=== PATIENT | male | born 1955 | race Caucasian/White ===

== ENCOUNTER → 2024-02-28 06:22 | Day surgery (SDC) | payer BC, SELFPAY ==
[2024-02-28 07:04] LABS: Glucose - Point of Care 126 mg/dl (70-99)
== END ==
LOC: GI 06:22
PROVIDERS: ATTENDING PHYSICIAN Internal Medicine Gastroenterology
DX: Z12.11 Encounter for screening for malignant neoplasm of colon (principal); K52.9 Noninfective gastroenteritis and colitis, unspecified; K63.89 Other specified diseases of intestine; K57.30 Diverticulosis of large intestine without perforation or abscess without bleeding; K64.8 Other hemorrhoids
CPT/HCPCS: 45380; 88305; 82962

== ENCOUNTER → 2024-10-18 15:57 | Outpatient (REF) | payer BC, SELFPAY | LOC: CLAB 15:57 | PROVIDERS: ATTENDING PHYSICIAN Podiatrist | DX: M86.172 Other acute osteomyelitis, left ankle and foot (principal) | CPT/HCPCS: 88305; 88311 ==

== ENCOUNTER 2025-05-11 15:26 | Inpatient (IN) | payer BC, SELFPAY ==
[2025-05-11 12:48] VITALS: BP 115/66
[2025-05-11 13:27] VITALS: BMI 34.1
--- NOTE | 2025-05-11 13:34 | ED.GENMED ---
History of Present Illness
General
Chief Complaint: Skin Problem
Source: patient
Exam Limitations: none
Time Seen by Provider: 05/11/25 13:10
Nursing documentation reviewed up to this point in time: agreed with
History of Present Illness
History of Present Illness:
69-year-old male with history as noted significant for hypertension, hyperlipidemia, diabetes multiple prior toe amputations presents to the ER for a left foot infection; was sent in by his search marketing coordinator (Dr. Soler) for admission. Patient reports
that he has had chronic wounds for the past few months on his left foot but over the past 5 days he has noticed increased redness, increasing size of wound, purulent drainage and foul odor. Schedule an appoint with his search marketing coordinator today who told him
that he required admission for IV antibiotics and surgery. He has had subjective fever the past few days. He denies any other acute complaints.
Past History
Past History
ED Past Medical History: HTN and Hypercholesterolemia
Social History
Tobacco: Non-smoker
Living: with family
Review of Systems
Review of Systems
All Other Systems: ROS reviewed and negative except as documented in HPI and ROS
Constitutional: Reports fever; Denies chills
Respiratory: Denies trouble breathing
Cardiac: Denies chest pain
ABD/GI: Denies abdominal pain
Musculoskeletal: Denies neck pain or back pain
Skin: Reports other (Wound infection)
Phy Exam
Physical Exam
Physical Exam:
General: Awake, alert, oriented x3; no acute distress
Head: Normocephalic, atraumatic
Eyes: Conjunctiva normal
Throat: Airway intact, handling secretions
Neck: Trachea midline, supple without meningismus
Lungs: Breathing comfortably no distress, no tachypnea or hypoxia
Heart: Regular rate
Neuro: Grossly intact
Skin: On patient's left foot he has necrotic wound in the area of prior 2nd through 4th toe amputation with exposed bone, purulent drainage, foul odor and large surrounding area of erythema and warmth (Pictured below)
Extremities: Foot wound as below; no edema, palpable pulses in the feet bilaterally
Scores
Heart Failure Risk
Heart Failure Risk Score: Not Applicable
Heart Score for Chest Pain Patients
STEMI patient?: Not applicable
Withdrawal Assessment of Alcohol
Withdrawal Assessment Completed?: Not applicable
Course
Orders/Labs/Results
Orders:
Orders
05/11/25 13:10
CR Foot - Left Min 3 Views Urgent
Comment:
Reason For Exam: foot wound infection
05/11/25 13:11
CRP [C-Reactive Protein] Urgent
Complete Blood Count/With Diff Urgent
Comprehensive Metabolic Panel Urgent
ESR [Erythrocyte Sed Rate] Urgent
05/11/25 13:32
Piperacillin/Tazo 3.375 Gram [Zosyn] 3.375 gram in 50 ml IV NOW
05/11/25 13:33
Vancomycin [Vancocin] 2,000 mg 0.9% Sodium Chloride 500 ml [Nss] 500 ml IV NOW
05/11/25 13:45
Blood Culture Q30M
CHADD Source: Blood/Venous
Specimen Description:
05/11/25 14:15
Blood Culture Q30M
CHADD Source: Blood/Venous
Specimen Description:
Vital Signs
Initial and Last Documented VS:
Initial Vital Signs
Temp Pulse Resp BP Pulse Ox
36.6 C 84 18 115/66 96
05/11/25 12:48 05/11/25 12:48 05/11/25 12:48 05/11/25 12:48 05/11/25 12:48
Last Documented Vital Signs
Temp Pulse Resp BP Pulse Ox
36.6 C 84 18 115/66 96
05/11/25 12:48 05/11/25 12:48 05/11/25 12:48 05/11/25 12:48 05/11/25 12:48
MDM/Problems Addressed
Differential Diagnosis Includes:
Wound infection, osteomyelitis, cellulitis
MDM/Problems Addressed:
69-year-old male presents with infected diabetic foot wound on the left foot. Sent by his search marketing coordinator for IV antibiotics and admission with plan for MRI and OR for debridement tomorrow. Vital signs are normal here. Exam as above. Will place an IV
send labs including a CBC and a CMP, ESR and CRP. Will check foot x-ray to start will ultimately likely receive an MRI during admission. Will treat with IV antibiotics. Discussed case with hospitalist for admission.
Chronic conditions affecting care:
Diabetes
*Radiology
Radiology exam reviewed: preliminary read by ED provider
*Pulse Oximetry
SaO2: 96
Oxygen Mode of Delivery: Room air
Patient hypoxic: no (96%)
*Critical Care Note
Total Time (30-74mins, 75-104mins- exclusive of procedures): Not Applicable
Data Reviewed
Review of Other/Old Records Reveals: Records (Reviewed note from podiatry appointment today)
Source: patient, records and spouse
Patient Management
Discussion with other providers: Hospitalist (Discussed with hospitalist) and Historic Sites Supervisor (Discussed with search marketing coordinator)
Escalation/DeEscalation of care consider admission/obs:
Admission indicated
ED Attending Note
-
Portions of this chart may have been created with voice recognition software.� Occasional wrong word or��sound alike� substitutions may have occurred due to the inherent limitations of voice recognition software.
Discharge Plan
Departure
Patient Disposition: Admit
Date of Disposition: 05/11/25
Time of Disposition: 13:39
Admit to doctor: Sia
Presentation/result/management discussed w/ accepting MD/DO: Hospitalist
Discharge Problem:
Wound infection
Prescriptions:
No Action
rosuvastatin 10 MG tablet
10 mg PO DAILY
METFORMIN HCL
1,000 mg PO BID
glimepiride 1 MG tablet
1 mg PO DAILY
liraglutide [Victoza 2-Adelfo] 0.6 MG/0.1 ML pen injector
0.6 mg SQ DAILY
[id number] [Men 50 Plus Multivitamin] 1 EACH tablet
1 ea PO DAILY
empagliflozin [Jardiance] 25 MG tablet
25 mg PO DAILY
Cinnamon
1,000 mg PO DAILY
lisinopril 20 MG tablet
20 mg PO DAILY AT 0700
sennosides [senna] 1 TABLET tablet
2 tab PO BID 0RF
acetaminophen 325 MG tablet
650 mg PO QID 0RF
polyethylene glycol 3350 17 GRAMS powder in packet
17 grams PO DAILY 0RF
magnesium hydroxide 30 ML suspension
30 ml PO DAILYPRN PRN (Reason: constipation) 0RF
aspirin 325 MG tablet,delayed release (DR/EC)
325 mg PO DAILY 0RF
docusate sodium 100 MG capsule
100 mg PO BID 0RF
oxycodone 5 MG tablet
1 - 2 tab PO Q4HPRN PRN (Reason: moderate�severe pain) Qty: 75 0RF
naproxen sodium [Aleve] 220 MG tablet
440 mg PO BID Qty: 0 0RF
Interventions
Interventions:
*General Assessment Last Done: 05/11/25 13:25
*ED- Fall Risk Assessment Last Done: 05/11/25 13:25
*ED COVID-19 Vaccine History Last Done: 05/11/25 13:25
Discharge Date and Time
Print Language: TURKISH
[2025-05-11] MEDS: ZOSYN 50 IV ×2 (13:43→19:25)
[2025-05-11 13:50] LABS: Hematocrit 35.9 % (39.0-52.0); Hemoglobin 12.1 g/dL (13.0-18.0); Mean Corp Hgb Conc. 33.7 g/dL (33.0-37.0); Mean Corpuscular Volume 86.1 fL (80.0-94.0); Nucleated Red Blood Cells % 0 % (-); Platelet Count 460 10^3/uL (130-400); Red Cell Dist. Width 12.6 % (11.5-14.5)
[2025-05-11] MEDS: VANCOCIN 540 MG IV (14:19)
[2025-05-11 14:21] LABS: ALT (SGPT) 35 U/L (0-50); AST (SGOT) 31 U/L (17-59); Albumin 3.8 g/dl (3.5-5.0); Alkaline Phosphatase 150 U/L (38-126); Blood Urea Nitrogen 20 mg/dl (9-20); Calcium 9.5 mg/dl (8.4-10.2); Carbon Dioxide 25 mmol/L (22-30); Chloride 104 mmol/L (98-107); Estimated Creatinine Clearance > 125 ml/min; Glucose 137 mg/dl (70-99); Potassium 3.8 mmol/L (3.5-5.1); Sodium 139 mmol/L (135-145); Total Protein 6.7 g/dl (6.3-8.2); eGFR > 60.00
--- NOTE | 2025-05-11 14:38 | HPS.HSE ---
Addendum entered and electronically signed by Rajendra Stovall MD 05/11/25 18:25:
This is an addendum to H&P written by Bhavna Barr on 05/11/2025. �Patient seen and examined independently with resident.
69-year-old male past medical history of hypertension, hyperlipidemia, diabetes, multiple prior toe amputations, obesity presenting with left foot infection. �He was sent in by his mobile practice lead Dr. Soler. �Has had chronic wounds on past few months
of the left foot with increased redness, worsening size and purulent drainage and foul odor over past few days. �Subjective fever.
Vital signs normal.
Labs pending.
Patient with diabetic foot infection of chronic wounds on left foot concerning for osteomyelitis. �Blood cultures pending. �Vancomycin/Zosyn. �Foot x-ray pending. Check MRI. Podiatry consulted for surgery. �N.p.o. past midnight. Hold oral diabetic
medications. ID consulted.�
Original Note:
Family Physician
-
Family Physician: Fred Armando
Chief Complaint
-
Diabetic foot infection
History of Present Illness
69-year-old male with history of insulin-dependent diabetes mellitus with prior toe amputations bilaterally, hyperlipidemia, hypertension, morbid obesity, osteoarthritis of right knee, who presents with infection of chronic left foot wound. Chronic
wound was present over the past few months but over the past several days he noticed redness, dark-colored discoloration of the wound, and foul odor. There was no discharge or pain. He was seen by his mobile practice lead, Dr. Soler, today who sent him
to the ED to be admitted with arrangements for surgical intervention. He does have diabetic neuropathy with numbness in bilateral feet, but reports no acute changes in his chronic neuropathic symptoms. He states his blood glucose are generally
well-controlled and reports A1c of 6.8.
He reports subjective fever. Denies chest pain, palpitations, shortness of breath, nausea vomiting, abdominal pain, diarrhea/constipation, urinary symptoms.
Medical History
Past Medical History
Past Medical History: Reports HTN, Hypercholesterolemia, IDDM (Type 2) and Other (obesity, osteoarthritis of knee, multiple toe amputations. )
Past Surgical History: Reports Orthopedic (R knee replacement, left knee replacement, jaw surgery, multiple toe amputations )
Social History
Tobacco: Non-smoker
Alcohol: Other (rare )
Drug: None
Living: With Family
Employment: Employed
Family History
Family History: Not pertinent
Allergies / Home Medications
Allergies reflects when Allergies were last updated in [facility].
Home Medications with original date entered in [facility]
Allergy/Medication List:
Allergies
Allergy/AdvReac Type Severity Reaction Status Date / Time
Dirt, dust, pollen Allergy Sneezing, Uncoded 10/29/17 08:37
puffy
eyes,
wheezing
Home Medications
rosuvastatin 10 mg tablet 10 mg PO DAILY 01/21/12
empagliflozin 25 mg tablet (Jardiance) 25 mg PO DAILY 10/29/17
insulin degludec 100 unit/mL (3 mL) subcutaneous pen (Tresiba FlexTouch U-100 insulin) 7 unit SC DAILY 05/11/25
lisinopril 20 mg-hydrochlorothiazide 25 mg tablet 1 tab PO DAILY 05/11/25
metformin 500 mg tablet,extended release 24 hr 2,000 mg PO QPM 05/11/25
repaglinide 1 mg tablet 2 mg PO BID 05/11/25
therapeutic multivitamin 1 tab PO DAILY 05/11/25
tirzepatide 10 mg/0.5 mL subcutaneous pen injector (Mounjaro) 10 mg SC VALERIO 05/11/25
Review of Systems
-
History Source: Patient
Constitutional: Reports Chills
Respiratory: Denies Trouble Breathing
Cardiac: Denies Chest Pain, Palpitations or Syncope
Abdomen/GI: Denies Abdominal Pain, Nausea, Vomiting, Diarrhea or Constipated
: Reports No Symptoms; Denies Dysuria, Difficulty Voiding or Bleeding
Skin: Reports Other (left foot wound with redness, discoloration, foul odor)
Neurological: Denies Dizzy
Physical Exam
Vital Signs
Vital Signs
Temp Pulse Resp BP Pulse Ox
97.9 F 84 18 115/66 96
05/11/25 12:48 05/11/25 12:48 05/11/25 12:48 05/11/25 12:48 05/11/25 13:42
Physical Exam
General: No Apparent Distress, Comfortable and Conversant
HEENT: NormoCephalic, Anicteric and Moist mucous membranes
Respiratory: Clear and Non Labored Respirations; No Wheezes, Rales, Rhonchi or Crackles
Cardiac: S1/S2, Regular Rhythm and Murmur (faint systolic murmur); No Calf Tenderness
GI: Soft, Non Tender, Non Distended, Normal Bowel Sounds and Other (obese abdomen)
Musculoskeletal: No Clubbing and No Cyanosis
Skin: Other (left foot is warm, posterior tibial pulse nonpalpable, mild ankle swelling, foot wound dressing intact)
Neuro: Awake, Alert and Oriented
Psych: Calm
Laboratory Results
-
05/11/25 13:35
05/11/25 13:35
Laboratory Results
Total Bilirubin 1.1 mg/dl (0.2-1.3) 05/11/25 13:35
AST 31 U/L (17-59) 05/11/25 13:35
ALT 35 U/L (0-50) 05/11/25 13:35
Alkaline Phosphatase 150 U/L (38-126) H 05/11/25 13:35
Impression/Plan
-
IMPRESSION:
69-year-old male with history of insulin-dependent diabetes mellitus with prior toe amputations bilaterally, hyperlipidemia, hypertension, morbid obesity, osteoarthritis of right knee, who presents with diabetic foot infection with osteomyelitis.
PLAN:
Diabetic foot infection:
Osteomyelitis:
Elevated WBC with left shift, elevated CRP/ESR, chills. Exposed bone.
DONALD/TBI in 08/2022 wnl
- Continue Van and zosyn
- Await foot xray.
- Await blood cultures.
- No wound cultures for now, best to get intraoperative culture
- Check MRI
- Infectious disease consult
- Podiatry consult
- NPO from midnight for potential surgical debridement tomorrow
- PT/OT when stable
Type 2 diabetes mellitus:
Insulin dependent:
Pt reports good control. Has CGM, reports A1c 6.8
- Hold metformin, repaglinide, insulin degludec, tirzepetide
- Continue Jardiance
- ISS, diabetic diet, follow accuchecks and adjust regimen as needed
- NPO from midnight
Essential hypertension:
- Continue Lisinopril-HCTZ
Hypercholesterolemia:
- Continue Rosuvastatin
Obesity:
- Affects all aspect of care. Pt will benefit from weight loss measures
DVT ppx: Lovenox
Code status: full code
[2025-05-11 14:39] LABS: C-Reactive Protein 188.70 mg/L (0.0-10.00)
--- NOTE | 2025-05-11 15:25 | CON.ID ---
Consultation
-
Date/Time Consultation Requested: May 11, 2025 151
Date/Time Consultation Performed: May 11, 2025 152
Requesting Provider: Dr. Bhavna Argueta
Performing Provider: Dr. Lily Craig
Reason for Consultation: Diabetic foot infection
Chief Complaint / Past History
Chief Complaint
Nonhealing foot wound
History of Present Illness
69 year old male with history of diabetes, hx multiple toe amps presented to ED today due to left foot swelling and redness. He reports chronic callous with wound on center located plantar aspect of his left foot. He had subjective fever few days
ago and noted deterioration of foot wound. [place] Afterwards, he noted left foot/leg edema, erythema; the wound had opened with malodor discharge. He saw his vehicle monitor technician today who sent him the the ED. WBC
12.6. Foot XRAY: suspicious for osteo along second and third met heads.
Past History
Additional Past Medical History:
Diabetes mellitus
Neuropathy
Hypertension
Dyslipidemia
Right total knee replacement
Left total knee replacement
Left 2nd, 3rd, 4th Toe amputations
Right 2nd toe amputation
Allergy History:
Dirt, dust, pollen Allergy (Uncoded 10/29/17 08:37)
Sneezing, puffy eyes, wheezing
Medications Reviewed: Yes
Current Antibiotics:
Vancomycin
Zosyn
Social History
Tobacco: Non-Smoker
Alcohol: Occasional
Drug: None
Personal:
Family History
Family History: Not Pertinent
Review of Systems
Review of Systems
General: Fever and Chills; Negative Change in Appetite
HEENT: Negative Sinus Problems or Headache
Cardiovascular: Negative Chest Pain
Respiratory: Negative Dyspnea or Cough
Gasteroenterology: Negative Nausea, Vomiting or Diarrhea
Genital / Urological: Negative Dysuria
Endocrine: Negative Weakness
All systems: All other systems were reviewed and were negative
Vital Signs
Temp Pulse Resp BP Pulse Ox
97.9 F 84 18 115/66 96
05/11/25 12:48 05/11/25 12:48 05/11/25 12:48 05/11/25 12:48 05/11/25 13:42
Physical Exam
Physical Exam
Constitutional: No Acute Distress and Comfortable
Eyes: No Conjunctival Hemorrhage and Sclera Anicteric
Pulmonary: Clear
Gastrointestinal: Soft, Non Tender and Non Distended
Extremities: Edema (Left foot and LLE 2+) and Erythema (whole left foot to below knee, + warmth)
Wound: Other (Left foot: large deep wound to bone over plantar 2nd and 3rd sub met, unhealthy tissue, +surrounding erytehma )
Neurological: AO x 3
Lab / Diagnostic Study Results
05/11/25 13:35
05/11/25 13:35
Abs Immat Gran (auto) 0.0 10^3/uL (0-0.05) 05/11/25 13:35
Absolute Neuts (auto) 9.2 10^3/uL (1.4-6.5) H 05/11/25 13:35
Absolute Lymphs (auto) 1.6 10^3/uL (1.2-3.4) 05/11/25 13:35
Absolute Monos (auto) 1.2 10^3/uL (0.1-0.6) H 05/11/25 13:35
Absolute Basos (auto) 0.1 10^3/uL (0-0.2) 05/11/25 13:35
Immature Gran % 0.3 % (0-0.5) 05/11/25 13:35
Neutrophils % 73.0 % (42.2-75.2) 05/11/25 13:35
Lymphocytes % 12.5 % (20.5-51.1) L 05/11/25 13:35
Monocytes % 9.2 % (1.7-9.3) 05/11/25 13:35
Eosinophils % 4.4 % (0-6) 05/11/25 13:35
Basophils % 0.6 % (0-2) 05/11/25 13:35
ESR 61 mm/hour (0-20) H 05/11/25 13:35
C-Reactive Protein 188.70 mg/L (0.0-10.00) H 05/11/25 13:35
Microbiology Results
Micro:
05/11/25 13:38 Blood Culture - Pending
Blood/Venous
05/11/25 13:35 Blood Culture - Pending
Blood/Venous
05/11/25 Foot XRAY: Abnormal osteolytic process along second and third metatarsal heads which is suspicious for acute osteomyelitis. Probable old healed erosion of the fourth metatarsal head.
Assessment / Plan
# Left foot acute osteomyelitis
# LLE cellulitis
# Leukocytosis
# DM with neuropathy
- Suspect need for TMA
- Agree with Vancomycin and Zosyn for now.
- Trend wbc.
# Conditions [employer]
Diabetes mellitus
Neuropathy
Hypertension
Dyslipidemia
Right total knee replacement
Left total knee replacement
Left 2nd, 3rd, 4th Toe amputations
Right 2nd toe amputation
[2025-05-11 15:48] VITALS: BP 118/77
[2025-05-11 16:00] VITALS: BP 109/70
--- NOTE | 2025-05-11 17:00 | PTCARENOTE ---
patient admitted to [facility] from ED. pt was able to walk to bed from stretcher. pt pleasant, AOX3. no complaints offered at this time. pt has wound to L foot that was dressed in ED earlier today. pt asked me not to undress wound due to it being
cleansed and redressed multiple times today. journalists and other writers did not undress wound as per pt request.
[2025-05-11 17:02] VITALS: BP 130/71; BMI 34.9
--- NOTE | 2025-05-11 17:27 | PHA.VAN.IN ---
Assessment
- Assessment
Renal Function: Appears similar to baseline
Concomitant Antimicrobials: Piperacillin/tazo
AUC Dosing Plan
- Dosing Variables
Dosing Weight (kg): 123
Dosing CrCl (ml/min): 125
Vd coefficient (L/kg): 0.7
- Empiric Dosing
Initial / Loading Dose: 2000 MG IV ~ 1415
Maintenance Regimen: 1750 MG IV Q12H
Estimated AUC (mcg*h/mL): 417
Estimated Peak (mcg*h/mL): 28
Estimated Trough (mcg/ml): 9.5
Estimated Half Life (H): 6.4
- Monitoring
No levels ordered at this time: Consider levels in next few days
Pharmacokinetics Vancomycin I
- -
Patient Age: 69
Patient Sex: Male
Vancomycin Day #: 1
Indication: Diabetic Foot
Requesting Provider: Dr Cortney Wade
Height / Weight:
Height 6 ft 2 in
Actual Weight 123.332 kg
Pertinent Past Medical History: diabetes multiple prior toe amputations presents to the ER for a left foot
- Vital Signs / Lab Results
Temp Pulse Resp BP Pulse Ox
98.6 F 83 16 130/71 95
05/11/25 17:02 05/11/25 17:02 05/11/25 17:02 05/11/25 17:02 05/11/25 17:02
Lab Results - Hematology
05/11/25
13:35
WBC 12.6 H
Lab Results - Chemistry
05/11/25
13:35
BUN 20
Creatinine 0.7
Estimated Creat Clear > 125
Albumin 3.8
[2025-05-11] MEDS: LOVENOX 40 MG SC (17:29)
[2025-05-11 17:57] LABS: Glucose - Point of Care 122 mg/dl (70-99)
[2025-05-11] MEDS: NOVOLOG FLEXPEN-MODERATE RESISTANCE SC (18:01)
[2025-05-11 21:42] LABS: Glucose - Point of Care 204 mg/dl (70-99)
[2025-05-11 23:23] VITALS: BP 143/62
[2025-05-12] VITALS (7 sets, daily range): BP systolic 110–124; BP diastolic 56–76
[2025-05-12] MEDS: ZOSYN 50 IV ×4 (01:51→19:18)
[2025-05-12] MEDS: VANCOCIN 535 MG IV ×2 (05:35→17:25)
[2025-05-12 05:50] LABS: Glucose - Point of Care 106 mg/dl (70-99)
--- NOTE | 2025-05-12 07:16 | CON.MD ---
Consultation - Medical
-
CC/HPI: 69-year-old male past medical history of hypertension, hyperlipidemia, diabetes, multiple prior toe amputations, obesity presenting with left foot infection. �He was sent in by me, Dr. Soler yesterday when he presented to the office with
a left foot infection. �Has had chronic wounds on past few months of the left foot and refused surgical intervention. He went away to [place] for several weeks and states that he walked several miles in shoes. He has not been wearing his
offloading shoe as recommended. He relates increased redness, worsening size, purulent drainage, foul odor and fevers over past few days. �Subjective fever.
Past History
Additional Past Medical History:
Diabetes mellitus
Neuropathy
Hypertension
Dyslipidemia
Right total knee replacement
Left total knee replacement
Left 2nd, 3rd, 4th Toe amputations
Right 2nd toe amputation
Allergy History:
Dirt, dust, pollen Allergy (Uncoded 10/29/17 08:37)
Sneezing, puffy eyes, wheezing
Home Medications
rosuvastatin 10 mg tablet 10 mg PO DAILY 01/21/12
empagliflozin 25 mg tablet (Jardiance) 25 mg PO DAILY 10/29/17
insulin degludec 100 unit/mL (3 mL) subcutaneous pen (Tresiba FlexTouch U-100 insulin) 7 unit SC DAILY 05/11/25
lisinopril 20 mg-hydrochlorothiazide 25 mg tablet 1 tab PO DAILY 05/11/25
metformin 500 mg tablet,extended release 24 hr 2,000 mg PO QPM 05/11/25
repaglinide 1 mg tablet 2 mg PO BID 05/11/25
therapeutic multivitamin 1 tab PO DAILY 05/11/25
tirzepatide 10 mg/0.5 mL subcutaneous pen injector (Mounjaro) 10 mg SC VALERIO 05/11/25
Current Antibiotics:
Vancomycin
Zosyn
Social History
Tobacco: Non-Smoker
Alcohol: Occasional
Drug: None
Personal:
Family History
Not Pertinent
Review of Systems
General: Fever and Chills; Negative Change in Appetite
HEENT: Negative Sinus Problems or Headache
Cardiovascular: Negative Chest Pain
Respiratory: Negative Dyspnea or Cough
Gasteroenterology: Negative Nausea, Vomiting or Diarrhea
Genital / Urological: Negative Dysuria
Endocrine: Negative Weakness
All systems: All other systems were reviewed and were negative
PE: Left foot with palpable pulses, normal proximal to distal cooling, loss of pedal hair, several previous digital amputation, large bebeto tar forefoot wound that is black and necrotic with exposed bone. There is malodor and erythema. He also has
a wound on the dorsolateral 5th digit that is fibrillogranular.
05/11/25 Foot X-RAY: Abnormal osteolytic process along second and third metatarsal heads which is suspicious for acute osteomyelitis. Probable old healed erosion of the fourth metatarsal head.
Assessment:
Left foot Diabetic foot infection with acute osteomyelitis
LLE cellulitis
Leukocytosis
DM with neuropathy
Plan: X-rays and labs reviewed. Continue antibiotics per ID - Vanco/Zosyn. Plan for debridement in the OR today. Surgical consent reviewed and discussed. All questions and concerns addressed. We will obtain an MRI after surgery today to assess
the metatarsal bones for osteomyelitis. I discussed with Ted that he may require a TMA if there is additional forefoot osteomyelitis which seems likely based on the x-rays and wound appearance today.
Consultation
-
Date/Time Consultation Requested: 05/12/25
Date/Time Consultation Performed: 05/12/25
Performing Provider: Sallie Soler DPM
Reason for Consultation: Left foot infection
--- NOTE | 2025-05-12 07:52 | W.PN.HOSP.TC ---
Today's Communication/Plan
-
Please see below
Assessment / Plan
Assessment / Plan
Physical Exam
General: No Apparent Distress, Comfortable and Conversant
HEENT: NormoCephalic, Anicteric and Moist mucous membranes
Respiratory: Clear and Non Labored Respirations; No Wheezes, Rales, Rhonchi or Crackles
Cardiac: S1/S2, Regular Rhythm and Murmur (faint systolic murmur); No Calf Tenderness
GI: Soft, Non Tender, Non Distended, Normal Bowel Sounds and Other (obese abdomen)
Musculoskeletal: No Clubbing and No Cyanosis
Skin: Other (left foot is warm, posterior tibial pulse nonpalpable, mild ankle swelling, foot wound dressing intact)
Neuro: Awake, Alert and Oriented
Psych: Calm
Assessment/Plan
69-year-old male with history of insulin-dependent diabetes mellitus with prior toe amputations bilaterally, hyperlipidemia, hypertension, morbid obesity, osteoarthritis of right knee, who presents with infection of chronic left foot wound. Chronic
wound was present over the past few months but over the past several days (prior to admission) he noticed redness, dark-colored discoloration of the wound, and foul odor. There was no discharge or pain. He was seen by his junior brand manager, Dr. Soler,
on 05/11/25, who sent him to the ED to be admitted with arrangements for surgical intervention. He does have diabetic neuropathy with numbness in bilateral feet, but reported no acute changes in his chronic neuropathic symptoms. He states his
blood glucose are generally well-controlled and reports A1c of 6.8. He reported subjective fever. Denied chest pain, palpitations, shortness of breath, nausea vomiting, abdominal pain, diarrhea/constipation, urinary symptoms.
Diabetic foot infection
Osteomyelitis
Elevated WBC with left shift, elevated CRP/ESR, chills. Exposed bone.
DONALD/TBI in 08/2022 wnl
- Continue Van and zosyn
- Foot xray with OM
- Await blood cultures.
- S/P I&D of left foot with bone biopsy on 05/12/25 -- likely will need TMA
- Follow-up on MRI for TMA planning purposes.
- DONALD/PVR ordered to assess healing potential.
- Infectious disease consult
- Podiatry consult
- Activity: heel weightbearing in an OrthoWedge shoe.
- PT/OT when stable
- Continue Diabetic Diet
Type 2 diabetes mellitus
Insulin dependent:
Pt reports good control. Has CGM, reports A1c 6.8
- Hold metformin, repaglinide, insulin degludec, tirzepetide
- Continue Jardiance
- ISS, diabetic diet, follow accuchecks and adjust regimen as needed
Essential Hypertension
- Continue Lisinopril-HCTZ
Hypercholesterolemia
- Continue Rosuvastatin
Obesity
- Affects all aspect of care. Pt will benefit from weight loss measures
DVT Prophylaxis: Lovenox
Code Status: Full Code
Anticipated Discharge: > 48 hours
Subjective/Interval History
-
Date of Service: May 12, 2025
Patient was seen and examined. He denied any significant complaints or symptoms.
Objective Data
-
Labs:
Laboratory Results
05/12/25
06:00
WBC Pending
Hgb Pending
Hct Pending
Plt Count Pending
Sodium Pending
Potassium Pending
Chloride Pending
Carbon Dioxide Pending
BUN Pending
Creatinine Pending
Glucose Pending
Calcium Pending
Vital Signs:
Vital Signs
Temp Pulse Resp BP Pulse Ox
98.1 F 84 18 143/62 95
05/11/25 23:23 05/11/25 23:23 05/11/25 23:23 05/11/25 23:23 05/11/25 23:23
I&O
05/11/25 05/12/2525
06:59 06:59 06:59
Intake Total 1080 / 1080
Balance 1080 / 1080
[2025-05-12] MEDS: NOVOLOG FLEXPEN-MODERATE RESISTANCE SC ×2 (08:33→11:47)
[2025-05-12 10:50] LABS: Hematocrit 35.6 % (39.0-52.0); Hemoglobin 11.9 g/dL (13.0-18.0); Mean Corp Hgb Conc. 33.4 g/dL (33.0-37.0); Mean Corpuscular Volume 86.4 fL (80.0-94.0); Platelet Count 428 10^3/uL (130-400); Red Cell Dist. Width 12.5 % (11.5-14.5)
[2025-05-12 11:08] LABS: Blood Urea Nitrogen 13 mg/dl (9-20); Calcium 8.9 mg/dl (8.4-10.2); Carbon Dioxide 26 mmol/L (22-30); Chloride 107 mmol/L (98-107); Estimated Creatinine Clearance 123 ml/min; Glucose 123 mg/dl (70-99); Potassium 3.5 mmol/L (3.5-5.1); Sodium 141 mmol/L (135-145); eGFR > 60.00
[2025-05-12 11:52] LABS: Glucose - Point of Care 109 mg/dl (70-99)
--- NOTE | 2025-05-12 11:59 | W.PN.UPDATE ---
Update Note
Progress Note Update
S/P I&D of left foot with bone biopsy - See Op report
Bone culture and pathology pending. I suspect Osteomyelitis of the 3rd metatarsal, bone biopsy of 3rd metatarsal pending. He will likely require transmetatarsal amputation. MRI ordered for TMA planning purposes. DONALD/PVR ordered to assess healing
potential.
Plan to flush pack wound tomorrow. He may heel weightbearing in an OrthoWedge shoe. Continue Vanco/Zosyn per ID
--- NOTE | 2025-05-12 12:01 | PHA.VAN.FU ---
Vancomycin Assessment / Plan
- Assessment
Renal Function: Stable
WBC's are: WNL
In the past 24 hrs, patient has been: Afebrile
Concomitant Antimicrobials: piperacillin/tazobactam
- Dosing Plan
Continue: 1750mg q12h
- Monitoring Plan
Trough Level: 05/13 0530
Monitoring Comments: will get trough to assess patient load/dosing requirements
- Follow Up
Pharmacy will continue to follow.
Vancomycin Follow UP
- -
Patient Age: 69
Patient Sex: Male
Vancomycin Day #: 2
Indication: Diabetic Foot
Requesting Provider: Dr. Cortney Wade/Dr. Craig
Height / Weight:
Height 6 ft 2 in
Actual Weight 123.332 kg
Pertinent Past Medical History: T2DM, s/p several toe amputations
- Vital Signs / Lab Results
Temp Pulse Resp BP Pulse Ox
97.3 F 76 20 110/69 97
05/12/25 11:46 05/12/25 11:46 05/12/25 07:35 05/12/25 11:46 05/12/25 11:46
Lab Results - Hematology
05/11/25 05/12/25
13:35 10:32
WBC 12.6 H 10.4
Lab Results - Chemistry
05/11/25 05/12/25
13:35 10:32
BUN 20 13
Creatinine 0.7 0.8
Estimated Creat Clear > 125 123
Albumin 3.8
--- NOTE | 2025-05-12 12:40 | PTCARENOTE ---
Received patient from PACU at 1240. Patient AAOx3, no c/o pain, Left foot dressing CDI, elevated on 2 pillows. Patient was instructed on partial wt bearing status of left foot, off loading shoe (Cait), and walker. Call abreu in reach.
[2025-05-12] MEDS: ZESTRIL 20 MG PO (13:03)
[2025-05-12] MEDS: FARXIGA 10 MG PO (13:04)
[2025-05-12] MEDS: ORETIC 25 MG PO (13:04)
[2025-05-12] MEDS: CRESTOR 10 MG PO (13:04)
[2025-05-12 16:35] LABS: Glucose - Point of Care 216 mg/dl (70-99)
[2025-05-12] MEDS: NOVOLOG FLEXPEN-MODERATE RESISTANCE 3 UNITS SC (17:26)
[2025-05-12] MEDS: LOVENOX 40 MG SC (17:26)
[2025-05-12 21:23] LABS: Glucose - Point of Care 156 mg/dl (70-99)
[2025-05-13] MEDS: ZOSYN 50 IV ×4 (01:07→19:01)
[2025-05-13 06:00] LABS: Hematocrit 34.3 % (39.0-52.0); Hemoglobin 11.4 g/dL (13.0-18.0); Mean Corp Hgb Conc. 33.2 g/dL (33.0-37.0); Mean Corpuscular Volume 87.5 fL (80.0-94.0); Platelet Count 463 10^3/uL (130-400); Red Cell Dist. Width 12.6 % (11.5-14.5)
[2025-05-13] MEDS: VANCOCIN 535 MG IV (06:09)
[2025-05-13 06:31] LABS: Blood Urea Nitrogen 12 mg/dl (9-20); Calcium 9.2 mg/dl (8.4-10.2); Carbon Dioxide 25 mmol/L (22-30); Chloride 106 mmol/L (98-107); Estimated Creatinine Clearance 123 ml/min; Glucose 147 mg/dl (70-99); Potassium 3.5 mmol/L (3.5-5.1); Sodium 140 mmol/L (135-145); eGFR > 60.00
[2025-05-13 07:22] VITALS: BP 124/72
[2025-05-13 07:23] LABS: Glucose - Point of Care 129 mg/dl (70-99)
--- NOTE | 2025-05-13 08:28 | W.PN.POD ---
Today's Communication
Today's Communication
S/P Left foot I&D and 3rd proximal phalanx amputation
Assessment / Plan
-
Assessment:
Left foot Diabetic foot infection with acute osteomyelitis S/P I&D with 3rd proximal phalanx amputation - POD#1
LLE cellulitis
Leukocytosis
DM with neuropathy
Plan: Wound is flushed and packed at bedside today. Continue antibiotics per ID - Vanco/Zosyn. MRI pending. DONALD/PVR pending. Planning for likely TMA/gastroc recession.
Subjective
Chief Complaint
S/P Left foot I&D
Subjective
Patient awake, no complaints of pain
Objective
Temp Pulse Resp BP Pulse Ox
98.8 F 81 18 120/64 94
05/12/25 23:39 05/12/25 23:39 05/12/25 23:39 05/12/25 23:39 05/12/25 23:39
05/13/25 05:18
05/13/25 05:18
Vital Signs and Lab results were reviewed.
Physical Exam
Physical Exam
Left foot bandage with some strikethrough on the inner bandages. Pules palpable, wound on the left plantar foot under the sub2/3 area. Metatarsal head exposed and discolored. Wound bed fibrogranular. No longer any necrosis or malodor.
[2025-05-13] MEDS: NOVOLOG FLEXPEN-MODERATE RESISTANCE SC (08:45)
--- NOTE | 2025-05-13 08:47 | W.PN.HOSP.TC ---
Today's Communication/Plan
-
See plan
Assessment / Plan
Assessment / Plan
Physical Exam
General: No Apparent Distress, Comfortable and Conversant
HEENT: NormoCephalic, Anicteric and Moist mucous membranes
Respiratory: Clear and Non Labored Respirations; No Wheezes, Rales, Rhonchi or Crackles
Cardiac: S1/S2, Regular Rhythm and Murmur (faint systolic murmur); No Calf Tenderness
GI: Soft, Non Tender, Non Distended, Normal Bowel Sounds and Other (obese abdomen)
Musculoskeletal: No Clubbing and No Cyanosis
Skin: Other (left foot is warm, posterior tibial pulse nonpalpable, mild ankle swelling, foot wound dressing intact)
Neuro: Awake, Alert and Oriented
Psych: Calm
Assessment/Plan
69-year-old male with history of insulin-dependent diabetes mellitus with prior toe amputations bilaterally, hyperlipidemia, hypertension, morbid obesity, osteoarthritis of right knee, who presents with infection of chronic left foot wound. Chronic
wound was present over the past few months but over the past several days (prior to admission) he noticed redness, dark-colored discoloration of the wound, and foul odor. There was no discharge or pain. He was seen by his duct maker, Dr. Soler,
on 05/11/25, who sent him to the ED to be admitted with arrangements for surgical intervention. He does have diabetic neuropathy with numbness in bilateral feet, but reported no acute changes in his chronic neuropathic symptoms. He states his
blood glucose are generally well-controlled and reports A1c of 6.8. He reported subjective fever. Denied chest pain, palpitations, shortness of breath, nausea vomiting, abdominal pain, diarrhea/constipation, urinary symptoms.
Diabetic foot infection
Osteomyelitis
Elevated WBC with left shift, elevated CRP/ESR, chills. Exposed bone.
DONALD/TBI in 08/2022 wnl
- Continue Van and zosyn
- Foot xray with OM
- Await blood cultures.
- S/P I&D of left foot with bone biopsy on 05/12/25 -- likely will need TMA
- Follow-up on MRI for TMA planning purposes.
- DONALD/PVR ordered to assess healing potential.
- Infectious disease consult
- Podiatry consult
- Activity: heel weightbearing in an OrthoWedge shoe.
- PT/OT when stable
Type 2 diabetes mellitus
Insulin dependent:
Pt reports good control. Has CGM, reports A1c 6.8
- Hold metformin, repaglinide, insulin degludec, tirzepetide
- Continue Jardiance
- Per patient's request, on 05/13/25, I changed his diet to regular diet
- ISS, follow accuchecks and adjust regimen as needed
- Diabetes INTERMODAL DISPATCHER consult after discussion with patient on 05/13/25
Right Arm Firm and Swollen
- Could be infiltrate from IV line or a venous thrombus
- Check RUE ultrasound
Essential Hypertension
- Continue Lisinopril-HCTZ
Hypercholesterolemia
- Continue Rosuvastatin
Obesity
- Affects all aspect of care. Pt will benefit from weight loss measures
DVT Prophylaxis: Lovenox
Code Status: Full Code
Anticipated Discharge: > 48 hours
Subjective/Interval History
-
Date of Service: May 13, 2025
Patient was seen and examined. He reported his right arm was swollen from the IV access. No numbness, tingling or weakness in the right upper extremity.
Objective Data
-
Labs:
Laboratory Results
05/13/25
05:18
WBC 10.0
Hgb 11.4 L
Hct 34.3 L
Plt Count 463 H
Sodium 140
Potassium 3.5
Chloride 106
Carbon Dioxide 25
BUN 12
Creatinine 0.8
Glucose 147 H
Calcium 9.2
Vital Signs:
Vital Signs
Temp Pulse Resp BP Pulse Ox
98.5 F 73 16 124/72 97
05/13/25 07:22 05/13/25 07:22 05/13/25 07:22 05/13/25 07:22 05/13/25 07:22
I&O
05/12/25 05/13/25 05/14/25
06:59 06:59 06:59
Intake Total 1080 / 1080 1590 / 1590
Output Total 1400 / 1400
Balance 1080 / 1080 190 / 190
[2025-05-13] MEDS: ZESTRIL 20 MG PO (10:15)
[2025-05-13] MEDS: CRESTOR 10 MG PO (10:15)
[2025-05-13] MEDS: FARXIGA 10 MG PO (10:15)
[2025-05-13] MEDS: ORETIC 25 MG PO (10:19)
[2025-05-13 10:32] LABS: Glycohemoglobin (HgbA1c) 6.5 % (4.0-5.6)
--- NOTE | 2025-05-13 11:05 | PHA.VAN.FU ---
Addendum entered and electronically signed by Amira Matthews 05/13/25 11:25:
This note corresponds with day #3 of vancomycin therapy.
Original Note:
Vancomycin Assessment / Plan
- Assessment
Renal Function: Stable
WBC's are: WNL
In the past 24 hrs, patient has been: Afebrile
Concomitant Antimicrobials: piperacillin/tazobactam
- Assessment - Trough Based Monitoring
Trough Value: 13.1
Level Today was: Appropriate
Level Comments: specimen not protected from light, may not truly reflect vanco clearance
- Dosing Plan
Adjust Regimen to: 1500mg q12h
Dosing Comments: Pt trough estimated at 9.7 with [id number], does not follow population PK
- Monitoring Plan
No level(s) ordered at this time: consider within next few days
- Follow Up
Pharmacy will continue to follow.
Vancomycin Follow UP
- -
Patient Age: 69
Patient Sex: Male
Vancomycin Day #: 2
Indication: Diabetic Foot
Requesting Provider: Dr. Barr (Resident)/Dr. Craig
Height / Weight:
Height 6 ft 2 in
Actual Weight 123.332 kg
Pertinent Past Medical History: T2DM, s/p several toe amputations
- Vital Signs / Lab Results
Temp Pulse Resp BP Pulse Ox
98.5 F 73 16 124/72 97
05/13/25 07:22 05/13/25 07:22 05/13/25 07:22 05/13/25 07:22 05/13/25 07:22
Lab Results - Hematology
05/11/25 05/12/25 05/13/25
13:35 10:32 05:18
WBC 12.6 H 10.4 10.0
Lab Results - Chemistry
05/11/25 05/12/25 05/13/25
13:35 10:32 05:18
BUN 20 13 12
Creatinine 0.7 0.8 0.8
Estimated Creat Clear > 125 123 123
Albumin 3.8
Microbiology Results
05/12/25 11:50 Anaerobic Culture - Preliminary
Foot - Left Culture pending. Anaerobic cultures are examined after 3
days incubation. Additional information to follow.
05/12/25 11:50 Wound Culture - Preliminary
Foot - Left Escherichia coli
Gram Stain - Preliminary
05/12/25 11:50 Tissue Culture - Preliminary
Foot - Left Escherichia coli
Enterococcus species
Gram Stain - Preliminary
05/11/25 17:33 MRSA Screen - Final
Nose No Methicillin Resistant Staphylococcus aureus isolated.
05/11/25 13:35 Blood Culture - Preliminary
Blood/Venous No Growth in 24 hours- Final report to follow
05/11/25 13:38 Blood Culture - Preliminary
Blood/Venous No Growth in 24 hours- Final report to follow
Therapeutic Drug Monitoring
Vancomycin Trough 13.1 ug/ml (5-20) 05/13/25 05:12
[2025-05-13 11:16] LABS: Glucose - Point of Care 172 mg/dl (70-99)
--- NOTE | 2025-05-13 12:14 | W.PN.ID1 ---
Date of Service
Date of Service: May 13, 2025
Today's Communication
DC Vanco. Continue Zosyn
Assessment / Plan
# Left foot acute osteomyelitis
# LLE cellulitis
# Leukocytosis - resolved
# DM with neuropathy
-/ s/p I+D, 3rd prox phalanx base amputation
- OR cx: E. coli, Enterococcus
-For MRI
- Continue Zosyn
- DC Vancomycin.
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
Diabetes mellitus
Neuropathy
Hypertension
Dyslipidemia
Right total knee replacement
Left total knee replacement
Left 2nd, 3rd, 4th Toe amputations
Right 2nd toe amputation
Subjective / Review of Systems
No pain
Vital Signs / Physical Exam
Vital Signs
Vital Signs
Temp Pulse Resp BP Pulse Ox
98.5 F 73 16 124/72 97
05/13/25 07:22 05/13/25 07:22 05/13/25 07:22 05/13/25 07:22 05/13/25 07:22
Physical Exam
Constitutional: No Acute Distress and Comfortable
Cardiovascular: Regular Rate and S1/S2
Pulmonary: Clear
Gastrointestinal: Soft, Non Tender and Non Distended
Extremities: Edema (LLE edema decreasing) and Erythema (LLE erythema resolved)
Wound: Other (left foot dressing dry)
Neurological: AO x 3
Objective Data
Lab Data
Lab Results
05/13/25 05:18
05/13/25 05:18
ESR 61 mm/hour (0-20) H 05/11/25 13:35
Estimated Creat Clear 123 ml/min 05/13/25 05:18
Total Bilirubin 1.1 mg/dl (0.2-1.3) 05/11/25 13:35
AST 31 U/L (17-59) 05/11/25 13:35
ALT 35 U/L (0-50) 05/11/25 13:35
Alkaline Phosphatase 150 U/L (38-126) H 05/11/25 13:35
C-Reactive Protein 188.70 mg/L (0.0-10.00) H 05/11/25 13:35
Most recent labs reviewed.
Micro Results:
05/12/25 11:50 Anaerobic Culture - Preliminary
Foot - Left Culture pending. Anaerobic cultures are examined after 3
days incubation. Additional information to follow.
05/12/25 11:50 Wound Culture - Preliminary
Foot - Left Escherichia coli
Gram Stain - Preliminary
05/12/25 11:50 Tissue Culture - Preliminary
Foot - Left Escherichia coli
Enterococcus species
Gram Stain - Preliminary
05/11/25 17:33 MRSA Screen - Final
Nose No Methicillin Resistant Staphylococcus aureus isolated.
05/11/25 13:35 Blood Culture - Preliminary
Blood/Venous No Growth in 24 hours- Final report to follow
05/11/25 13:38 Blood Culture - Preliminary
Blood/Venous No Growth in 24 hours- Final report to follow
05/11/25 Foot XRAY: Abnormal osteolytic process along second and third metatarsal heads which is suspicious for acute osteomyelitis. Probable old healed erosion of the fourth metatarsal head.
[2025-05-13] MEDS: NOVOLOG FLEXPEN-MODERATE RESISTANCE 1 UNITS SC ×2 (12:26→17:37)
--- NOTE | 2025-05-13 12:36 | CM ---
CM reviewed chart. IA completed.
Pt being treated for L foot osteo now s/p POD#1 of I&D and 3rd prox phalanx amp by Podiatry.
Cont ivabx for now. MRI and DONALD US pending. Per pt, anticipating additional procedure w/Podiatry.
Met with pt at bedside. Explained role and discussed anticipated dc plan/options.
Pt from home w/supportive and adult son.
Resides in 2story home w/2ste. 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 Owns RW/cane/commode and SC.
PT/OT recs pending. Possible home w/hc for SN/Wound Care at dc-will need to discuss further w/pt.
PCP confirmed: Fred Tilley
Pharm: [facility]
CM/SW will continue to follow to ensure a safe and timely dc.
[2025-05-13 15:25] VITALS: BP 115/58
[2025-05-13 17:10] LABS: Glucose - Point of Care 154 mg/dl (70-99)
[2025-05-13] MEDS: LOVENOX 40 MG SC (17:38)
[2025-05-13 21:30] LABS: Glucose - Point of Care 173 mg/dl (70-99)
[2025-05-13 23:45] VITALS: BP 123/68
[2025-05-14] MEDS: ZOSYN 50 IV ×4 (01:00→19:12)
[2025-05-14 07:28] LABS: Glucose - Point of Care 138 mg/dl (70-99)
[2025-05-14 07:35] VITALS: BP 127/71
[2025-05-14 08:18] LABS: Hematocrit 39.0 % (39.0-52.0); Hemoglobin 12.8 g/dL (13.0-18.0); Mean Corp Hgb Conc. 32.8 g/dL (33.0-37.0); Mean Corpuscular Volume 89.0 fL (80.0-94.0); Platelet Count 492 10^3/uL (130-400); Red Cell Dist. Width 12.4 % (11.5-14.5)
[2025-05-14] MEDS: ZESTRIL 20 MG PO (08:24)
[2025-05-14] MEDS: ORETIC 25 MG PO (08:24)
[2025-05-14] MEDS: CRESTOR 10 MG PO (08:24)
[2025-05-14] MEDS: FARXIGA 10 MG PO (08:25)
--- NOTE | 2025-05-14 08:25 | W.PN.POD ---
Today's Communication
Today's Communication
S/P I&D left foot with 3rd proximal phalanx amputation
Assessment / Plan
-
Assessment:
Left foot Diabetic foot infection with acute osteomyelitis S/P I&D with 3rd proximal phalanx amputation - POD#2
LLE cellulitis
Leukocytosis
DM with neuropathy
Plan: Wound is flushed and packed at bedside today. Continue antibiotics per ID - Zosyn. MRI pending. DONALD/PVR pending. Planning for likely TMA/gastroc recession.
Subjective
Chief Complaint
S/P Left foot I&D with amputation of 3rd proximal phalanx
Subjective
Patient is awake and conversational at bedside. No complaints of pain.
Objective
Temp Pulse Resp BP Pulse Ox
98.0 F 73 18 123/68 96
05/13/25 23:45 05/13/25 23:45 05/13/25 23:45 05/13/25 23:45 05/13/25 23:45
05/14/25 07:54
Vital Signs and Lab results were reviewed.
Physical Exam
Physical Exam
Left foot bandage with some strikethrough on the inner bandages. Pules palpable, wound on the left plantar foot under the sub2/3 area. Metatarsal head exposed and discolored. Wound bed fibrogranular. No longer any necrosis or malodor.
[2025-05-14] MEDS: NOVOLOG FLEXPEN-MODERATE RESISTANCE SC (08:33)
--- NOTE | 2025-05-14 08:35 | PN.DE.MGMTRT ---
Insulin Management
- -
05/14/2025: Diabetes Management Consult
69 year old male who presented with left foot wound infection. PMH: HTN, HLD, T2DM, Obesity.
Pt has had chronic wounds of the left foot with increased redness, worsening size and purulent drainage and foul odor over past few days.
prior to admission, was taking Tresiba 7 units in AM, Jardiance 25mg daily, Metformin 2000mg in PM, Prandin 2mg BID (Breakfast/dinner) and Mounjaro Q Sundays.
A1C 6.5% , eGFR > 60%, Cr
Pt awake alert, oriented, sitting up @ edge of bed, offers no complaints, able to discuss diabetes care plan.
Current regimen includes Farxiga 10mg daily and moderate corrective insulin only.
Glucose range 129 to 172, hs was 173, fasting 141 V, 138 POC this AM.
Will start Lantus 10 units in AM and low dose Prandin 1mg TID. Cont Farxiga, change to low corrective with meals.
Will closely monitor glucose trend and add AC NovoLog if necessary. Will HOLD Metformin for now for possible OR.
Ordered Regular diet, will modify to 2000 mary diet.
Pt uses CGM- Andrea for glucose monitoring at home.
Diabetes History
- -
Type of Diabetes: 2 requiring insulin
Pre-Admission Diabetes Regimen
Lab Results
Hemoglobin A1c 6.5 % (4.0-5.6) H 05/12/25 10:32
Insulin Pump Settings
IP Diabetes Regimen
05/13/25 05/13/25 05/13/25
11:15 17:09 21:28
POC Glucose 172 H 154 H 173 H
05/14/25
07:27
POC Glucose 138 H
Meal type: Breakfast
Meal type: Dinner
Meal type: Lunch
Meal type: Breakfast
Amount consumed: 100%
Amount consumed: 100%
Amount consumed: 100%
Amount consumed: 100%
Patient Education
[2025-05-14 08:47] LABS: Blood Urea Nitrogen 11 mg/dl (9-20); Calcium 9.6 mg/dl (8.4-10.2); Carbon Dioxide 28 mmol/L (22-30); Chloride 105 mmol/L (98-107); Estimated Creatinine Clearance > 125 ml/min; Glucose 141 mg/dl (70-99); Potassium 4.0 mmol/L (3.5-5.1); Sodium 142 mmol/L (135-145); eGFR > 60.00
[2025-05-14] MEDS: LANTUS 0.1 UNITS SC (10:48)
[2025-05-14 11:32] LABS: Glucose - Point of Care 216 mg/dl (70-99)
--- NOTE | 2025-05-14 12:06 | CM ---
Following up on patient. RN stated today patient is going for an MRI so still will have follow up with Podiatry so no indication of being ready today and no PT/OT notes as of yet.
PLAN: Likely home no needs, Case Management still to follow for discharge needs.
[2025-05-14] MEDS: PRANDIN 1 MG PO ×2 (14:04→17:51)
[2025-05-14] MEDS: NOVOLOG FLEXPEN-LOW RESISTANCE 2 UNITS SC (14:04)
--- NOTE | 2025-05-14 14:06 | W.PN.ID1 ---
Date of Service
Date of Service: May 14, 2025
Today's Communication
Continue Zosyn.
Assessment / Plan
# Left foot acute osteomyelitis
# LLE cellulitis
# Leukocytosis - resolved
# DM with neuropathy
-/ s/p I+D, 3rd prox phalanx base amputation
- OR cx: E. coli, Enterococcus
- MRI + osteo 2nd, 3rd metatarsal, possible 4th met
- To OR per Podiatry, likely TMA. Hoping for surgical cure.
- Continue Zosyn.
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
Diabetes mellitus
Neuropathy
Hypertension
Dyslipidemia
Right total knee replacement
Left total knee replacement
Left 2nd, 3rd, 4th Toe amputations
Right 2nd toe amputation
Chief Complaint
-: Other (Foot osteo)
Subjective / Review of Systems
No complaints.
Vital Signs / Physical Exam
Vital Signs
Vital Signs
Temp Pulse Resp BP Pulse Ox
98.4 F 71 20 127/71 98
05/14/25 07:35 05/14/25 07:35 05/14/25 07:35 05/14/25 07:35 05/14/25 07:35
Physical Exam
Constitutional: No Acute Distress and Comfortable
Cardiovascular: Regular Rate and S1/S2
Pulmonary: Clear
Gastrointestinal: Soft, Non Tender and Non Distended
Extremities: Edema (LLE edema decreasing) and Erythema (LLE erythema resolved)
Wound: Other (left foot dressing dry)
Neurological: AO x 3
Objective Data
Lab Data
Lab Results
05/14/25 07:54
05/14/25 07:54
ESR 61 mm/hour (0-20) H 05/11/25 13:35
Estimated Creat Clear > 125 ml/min 05/14/25 07:54
Total Bilirubin 1.1 mg/dl (0.2-1.3) 05/11/25 13:35
AST 31 U/L (17-59) 05/11/25 13:35
ALT 35 U/L (0-50) 05/11/25 13:35
Alkaline Phosphatase 150 U/L (38-126) H 05/11/25 13:35
C-Reactive Protein 188.70 mg/L (0.0-10.00) H 05/11/25 13:35
Most recent labs reviewed.
Micro Results:
05/11/25 13:38 Blood Culture - Preliminary
Blood/Venous No Growth in 72 hours- Final report to follow
05/11/25 13:35 Blood Culture - Preliminary
Blood/Venous No Growth in 72 hours- Final report to follow
05/12/25 11:50 Wound Culture - Preliminary
Foot - Left Escherichia coli
Enterococcus faecalis
Gram Stain - Preliminary
05/12/25 11:50 Tissue Culture - Final
Foot - Left Escherichia coli
Enterococcus faecalis
Gram Stain - Final
05/12/25 11:50 Anaerobic Culture - Preliminary
Foot - Left Culture pending. Anaerobic cultures are examined after 3
days incubation. Additional information to follow.
05/11/25 17:33 MRSA Screen - Final
Nose No Methicillin Resistant Staphylococcus aureus isolated.
05/14/25 MRI LLE: Acute osteomyelitis of the second and third metatarsals adjacent to the large plantar forefoot soft tissue ulceration. Mild bone marrow edema in the head of the fourth metatarsal without overt T1 hypointense marrow replacement.
Considerations include reactive edema versus the early changes of acute osteomyelitis. Bone marrow edema of the fifth toe involving the proximal, middle, and distal phalanges. Nonspecific but posttraumatic bone marrow edema is a consideration.
Osteomyelitis is probably less likely as this does not appear to be in close proximity to a soft tissue wound, but clinical correlation is recommended.
05/11/25 Foot XRAY: Abnormal osteolytic process along second and third metatarsal heads which is suspicious for acute osteomyelitis. Probable old healed erosion of the fourth metatarsal head.
Care Review
Plan reviewed with: Physician (Dr. Soler)
[2025-05-14 15:20] VITALS: BP 145/80
[2025-05-14 16:49] LABS: Glucose - Point of Care 128 mg/dl (70-99)
[2025-05-14] MEDS: NOVOLOG FLEXPEN-LOW RESISTANCE SC (17:40)
[2025-05-14] MEDS: LOVENOX 40 MG SC (17:51)
--- NOTE | 2025-05-14 20:16 | W.PN.HOSP.TC ---
Today's Communication/Plan
-
See plan
Assessment / Plan
Assessment / Plan
Physical Exam
General: Not in acute distress
HEENT: Normocephalic
Respiratory: Clear to Auscultation Bilaterally
Cardiac: S1/S2, Regular Rhythm and Murmur (faint systolic murmur)
GI: Soft, Non Tender, Non Distended, Normal Bowel Sounds and Other (obese abdomen)
Musculoskeletal: No Cyanosis
Skin: Other (left foot is warm, posterior tibial pulse nonpalpable, mild ankle swelling, foot wound dressing intact)
Neuro: Awake, Alert and Oriented
Psych: Calm
Assessment/Plan
69-year-old male with history of insulin-dependent diabetes mellitus with prior toe amputations bilaterally, hyperlipidemia, hypertension, morbid obesity, osteoarthritis of right knee, who presents with infection of chronic left foot wound. Chronic
wound was present over the past few months but over the past several days (prior to admission) he noticed redness, dark-colored discoloration of the wound, and foul odor. There was no discharge or pain. He was seen by his agronomy professor, Dr. Soler,
on 05/11/25, who sent him to the ED to be admitted with arrangements for surgical intervention. He does have diabetic neuropathy with numbness in bilateral feet, but reported no acute changes in his chronic neuropathic symptoms. He states his
blood glucose are generally well-controlled and reports A1c of 6.8. He reported subjective fever. Denied chest pain, palpitations, shortness of breath, nausea vomiting, abdominal pain, diarrhea/constipation, urinary symptoms.
Diabetic foot infection
Osteomyelitis
Elevated WBC with left shift, elevated CRP/ESR, chills. Exposed bone.
DONALD/TBI in 08/2022 wnl
- S/P I&D of left foot with bone biopsy on 05/12/25 -- likely will need TMA
- Foot xray with OM
- MRI was + osteo 2nd, 3rd metatarsal, possible 4th met
- 05/12 s/p I+D, 3rd prox phalanx base amputation -- OR cx: E. coli, Enterococcus
- Continue Zosyn. Vancomycin recently stopped.
- DONALD/PVR ordered to assess healing potential. LT toe brachial index reduced. B/L DONALD's elevated.
- Infectious disease consult
- Podiatry consult
- Activity: heel weightbearing in an OrthoWedge shoe.
- PT/OT when stable
Type 2 diabetes mellitus
Insulin dependent:
Pt reports good control. Has CGM, reports A1c 6.8
- Continue Jardiance
- Per patient's request, on 05/13/25, I changed his diet to regular diet
- ISS, follow accuchecks and adjust regimen as needed
- Diabetes [employer] consult after discussion with patient on 05/13/25. Appreciate Diabetes [employer].
Right Arm Firm and Swollen
- Could be infiltrate from IV line or a venous thrombus
- RUE ultrasound with moderate diffuse subcutaneous edema (as per radiologist's report)
Essential Hypertension
- Continue Lisinopril-HCTZ
Hypercholesterolemia
- Continue Rosuvastatin
Obesity
- Affects all aspect of care. Pt will benefit from weight loss measures
DVT Prophylaxis: Lovenox
Code Status: Full Code
Anticipated Discharge: > 48 hours
Subjective/Interval History
-
Date of Service: May 14, 2025
Patient was seen and examined. He denied any symptoms or complaints.
Objective Data
-
Labs:
Laboratory Results
05/14/25
07:54
WBC 8.2
Hgb 12.8 L
Hct 39.0
Plt Count 492 H
Sodium 142
Potassium 4.0
Chloride 105
Carbon Dioxide 28
BUN 11
Creatinine 0.7
Glucose 141 H
Calcium 9.6
Vital Signs:
Vital Signs
Temp Pulse Resp BP Pulse Ox
98.4 F 70 20 145/80 98
05/14/25 15:20 05/14/25 15:20 05/14/25 15:20 05/14/25 15:20 05/14/25 15:20
I&O
05/13/25 05/14/25 05/15/25
06:59 06:59 06:59
Intake Total 1590 / 1590 1730 / 1730 1500 / 1500
Output Total 1400 / 1400
Balance 190 / 190 1730 / 1730 1500 / 1500
[2025-05-14 21:47] LABS: Glucose - Point of Care 148 mg/dl (70-99)
[2025-05-14 23:37] VITALS: BP 113/58
[2025-05-15] MEDS: ZOSYN 50 IV ×2 (01:09→08:42)
[2025-05-15 07:19] LABS: Glucose - Point of Care 127 mg/dl (70-99)
--- NOTE | 2025-05-15 07:23 | PN.DE.MGMTRT ---
Insulin Management
- -
05/15/2025: Diabetes Management Consult Follow up
Patient admitted 05/11 with left foot wound infection, diabetes management consult 05/14. PMH: HTN, HLD, T2DM, Obesity.
Pt has had chronic wounds of the left foot with increased redness, increasing size, purulent drainage and foul odor over past few days.
Prior to admission, was taking Tresiba 7 units in AM, Jardiance 25mg daily, Metformin 2000mg in PM, Prandin 2mg BID (Breakfast/dinner) and Mounjaro Q Sundays.
A1C 6.5%, eGFR > 60%, Cr .7
Patient is awake alert and oriented. Asked patient who he follows for diabetes care - Nomi Alvarez. Attempted to review diabetes meds, patients states: 'I told the other person all this yesterday, do I have to repeat it'? Pointedly asked
patient about the metformin, he states it is extended release and he takes it at dinner. He uses the [employer] 3 for glucose monitoring.
05/12 s/p I&D L foot with debridement to base and 3rd proximal phalanx amputation.
Yesterday patient received 10 units lantus in am with farxiga 10 mg, repaglinide 1 mg with lunch and dinner with low corrective insulin. Glucose range 128 to 216. Fasting glucose today 127.
To start repaglinide 1 mg at all 3 meals, continue farxiga daily and lantus 10 units daily. Due to arterial study 05/14 will not resume metformin today, will resume tomorrow with dinner.
Discussed with nurse.
Will follow
Diabetes History
- -
Type of Diabetes: 2 requiring insulin
Pre-Admission Diabetes Regimen
05/14/25
07:54
Creatinine 0.7
Lab Results
Hemoglobin A1c 6.5 % (4.0-5.6) H 05/12/25 10:32
Insulin Pump Settings
IP Diabetes Regimen
05/14/25 05/14/25 05/14/25
07:27 07:54 11:31
Glucose 141 H
POC Glucose 138 H 216 H
05/14/25 05/14/25 05/15/25
16:48 21:46 07:17
Glucose
POC Glucose 128 H 148 H 127 H
Meal type: Lunch
Meal type: Breakfast
Amount consumed: 100%
Amount consumed: 100%
Patient Education
[2025-05-15 07:25] VITALS: BP 121/54
[2025-05-15 08:35] LABS: Hematocrit 38.7 % (39.0-52.0); Hemoglobin 12.3 g/dL (13.0-18.0); Mean Corp Hgb Conc. 31.8 g/dL (33.0-37.0); Mean Corpuscular Volume 88.8 fL (80.0-94.0); Platelet Count 506 10^3/uL (130-400); Red Cell Dist. Width 12.3 % (11.5-14.5)
[2025-05-15] MEDS: NOVOLOG FLEXPEN-LOW RESISTANCE SC (08:37)
[2025-05-15] MEDS: LANTUS 0.1 UNITS SC (08:42)
[2025-05-15] MEDS: PRANDIN 1 MG PO ×3 (08:43→17:30)
[2025-05-15] MEDS: ORETIC 25 MG PO (08:43)
[2025-05-15] MEDS: ZESTRIL 20 MG PO (08:43)
[2025-05-15] MEDS: FARXIGA 10 MG PO (08:43)
[2025-05-15] MEDS: CRESTOR 10 MG PO (08:43)
[2025-05-15 09:46] LABS: Blood Urea Nitrogen 10 mg/dl (9-20); Calcium 9.5 mg/dl (8.4-10.2); Carbon Dioxide 27 mmol/L (22-30); Chloride 105 mmol/L (98-107); Estimated Creatinine Clearance > 125 ml/min; Glucose 132 mg/dl (70-99); Potassium 4.0 mmol/L (3.5-5.1); Sodium 141 mmol/L (135-145); eGFR > 60.00
--- NOTE | 2025-05-15 12:01 | W.PN.ID1 ---
Date of Service
Date of Service: May 15, 2025
Today's Communication
De-escalate Zosyn to Unasyn 3g IV q6h.
Assessment / Plan
# Left foot acute osteomyelitis
# LLE cellulitis
# Leukocytosis - resolved
# DM with neuropathy
-05/12 s/p I+D, 3rd prox phalanx base amputation
- OR cx: E. coli, Enterococcus
- MRI + osteo 2nd, 3rd metatarsal, possible 4th met
- To OR per Podiatry, likely TMA. Hoping for surgical cure.
- De-escalate Zosyn to Unasyn 3g IV q6h.
# Conditions [employer]
Diabetes mellitus
Neuropathy
Hypertension
Dyslipidemia
Right total knee replacement
Left total knee replacement
Left 2nd, 3rd, 4th Toe amputations
Right 2nd toe amputation
Chief Complaint
-: Other (Foot osteo)
Subjective / Review of Systems
No new complaints.
Vital Signs / Physical Exam
Vital Signs
Vital Signs
Temp Pulse Resp BP Pulse Ox
98.3 F 70 20 121/54 95
05/15/25 07:25 05/15/25 07:25 05/15/25 07:25 05/15/25 07:25 05/15/25 07:25
Physical Exam
Constitutional: No Acute Distress and Comfortable
Cardiovascular: Regular Rate and S1/S2
Pulmonary: Clear
Gastrointestinal: Soft, Non Tender and Non Distended
Extremities: Edema (LLE edema decreasing) and Erythema (LLE erythema resolved)
Wound: Other (left foot dressing dry)
Neurological: AO x 3
Objective Data
Lab Data
Lab Results
05/15/25 07:51
05/15/25 07:51
ESR 61 mm/hour (0-20) H 05/11/25 13:35
Estimated Creat Clear > 125 ml/min 05/15/25 07:51
Total Bilirubin 1.1 mg/dl (0.2-1.3) 05/11/25 13:35
AST 31 U/L (17-59) 05/11/25 13:35
ALT 35 U/L (0-50) 05/11/25 13:35
Alkaline Phosphatase 150 U/L (38-126) H 05/11/25 13:35
C-Reactive Protein 188.70 mg/L (0.0-10.00) H 05/11/25 13:35
Most recent labs reviewed.
Micro Results:
05/11/25 13:38 Blood Culture - Preliminary
Blood/Venous No Growth in 72 hours- Final report to follow
05/11/25 13:35 Blood Culture - Preliminary
Blood/Venous No Growth in 72 hours- Final report to follow
05/12/25 11:50 Wound Culture - Preliminary
Foot - Left Escherichia coli
Enterococcus faecalis
Gram Stain - Preliminary
05/12/25 11:50 Tissue Culture - Final
Foot - Left Escherichia coli
Enterococcus faecalis
Gram Stain - Final
05/12/25 11:50 Anaerobic Culture - Preliminary
Foot - Left Culture pending. Anaerobic cultures are examined after 3
days incubation. Additional information to follow.
05/11/25 17:33 MRSA Screen - Final
Nose No Methicillin Resistant Staphylococcus aureus isolated.
05/14/25 MRI LLE: Acute osteomyelitis of the second and third metatarsals adjacent to the large plantar forefoot soft tissue ulceration. Mild bone marrow edema in the head of the fourth metatarsal without overt T1 hypointense marrow replacement.
Considerations include reactive edema versus the early changes of acute osteomyelitis. Bone marrow edema of the fifth toe involving the proximal, middle, and distal phalanges. Nonspecific but posttraumatic bone marrow edema is a consideration.
Osteomyelitis is probably less likely as this does not appear to be in close proximity to a soft tissue wound, but clinical correlation is recommended.
05/11/25 Foot XRAY: Abnormal osteolytic process along second and third metatarsal heads which is suspicious for acute osteomyelitis. Probable old healed erosion of the fourth metatarsal head.
[2025-05-15 12:03] LABS: Glucose - Point of Care 185 mg/dl (70-99)
[2025-05-15] MEDS: NOVOLOG FLEXPEN-LOW RESISTANCE 1 UNITS SC ×2 (12:31→17:30)
[2025-05-15] MEDS: UNASYN IV ×2 (14:06→19:36)
[2025-05-15 15:35] VITALS: BP 120/72
[2025-05-15 17:09] LABS: Glucose - Point of Care 163 mg/dl (70-99)
[2025-05-15] MEDS: LOVENOX 40 MG SC (17:30)
--- NOTE | 2025-05-15 19:34 | W.PN.POD ---
Today's Communication
Today's Communication
S/P left foot I&D
Assessment / Plan
-
Assessment:
Left foot Diabetic foot infection with acute osteomyelitis S/P I&D with 3rd proximal phalanx amputation - POD#3
LLE cellulitis
DM with neuropathy
Plan: Wound is flushed and packed at bedside today. Continue antibiotics per ID - Unasyn. MRI reviewed and discussed. DONALD/PVR was reviewed and discussed. Planning for TMA/gastroc recession tomorrow at 2pm, npo after midnight. Surgical consent
was reviewed and discussed. risks, benefits and complications discussed. All questions addressed to the best of my ability. Explained that proximal margin will be taken and if any residual bone infection remains, he may require 6 weeks of IV
antibiotic therapy. I also stressed the importance of compliance and non-weightbearing post operatively to ensure the best outcome. He was warned of the risks of non-compliance.
Subjective
Chief Complaint
S/P Left foot I&D
Subjective
Patient awake at bedside with no complaints.
Objective
Temp Pulse Resp BP Pulse Ox
98.6 F 72 14 120/72 97
05/15/25 15:35 05/15/25 15:35 05/15/25 15:35 05/15/25 15:35 05/15/25 15:35
05/15/25 07:51
05/15/25 07:51
Vital Signs and Lab results were reviewed.
Physical Exam
Physical Exam
Left foot bandage with some strikethrough on the inner bandages. Pules palpable, wound on the left plantar foot under the sub2/3 area. Metatarsal head exposed and discolored. Wound bed fibrogranular. No longer any necrosis or malodor.
--- NOTE | 2025-05-15 19:35 | W.PN.HOSP.TC ---
Today's Communication/Plan
-
See plan
Assessment / Plan
Assessment / Plan
Physical Exam
General: Not in acute distress
HEENT: Normocephalic
Respiratory: Clear to Auscultation Bilaterally
Cardiac: S1/S2, Regular Rhythm and Murmur (faint systolic murmur)
GI: Soft, Non Tender, Non Distended, Normal Bowel Sounds and Other (obese abdomen)
Musculoskeletal: No Cyanosis
Skin: Other (left foot is warm, posterior tibial pulse nonpalpable, mild ankle swelling, foot wound dressing intact)
Neuro: Awake, Alert and Oriented
Psych: Calm
Assessment/Plan
69-year-old male with history of insulin-dependent diabetes mellitus with prior toe amputations bilaterally, hyperlipidemia, hypertension, morbid obesity, osteoarthritis of right knee, who presents with infection of chronic left foot wound. Chronic
wound was present over the past few months but over the past several days (prior to admission) he noticed redness, dark-colored discoloration of the wound, and foul odor. There was no discharge or pain. He was seen by his group work program aide, Dr. Soler,
on 05/11/25, who sent him to the ED to be admitted with arrangements for surgical intervention. He does have diabetic neuropathy with numbness in bilateral feet, but reported no acute changes in his chronic neuropathic symptoms. He states his
blood glucose are generally well-controlled and reports A1c of 6.8. He reported subjective fever. Denied chest pain, palpitations, shortness of breath, nausea vomiting, abdominal pain, diarrhea/constipation, urinary symptoms.
Diabetic foot infection
Osteomyelitis
Elevated WBC with left shift, elevated CRP/ESR, chills. Exposed bone.
DONALD/TBI in 08/2022 wnl
- S/P I&D of left foot with bone biopsy on 05/12/25 -- likely will need TMA
- Foot xray with OM
- MRI was + osteo 2nd, 3rd metatarsal, possible 4th met
- 05/12 s/p I+D, 3rd prox phalanx base amputation -- OR cx: E. coli, Enterococcus
- Vancomycin and Zosyn recently stopped. De-escalate Zosyn to Unasyn 3g IV q6h.
- DONALD/PVR ordered to assess healing potential. LT toe brachial index reduced. B/L DONALD's elevated.
- Infectious disease consult
- Podiatry consult
- Activity: heel weightbearing in an OrthoWedge shoe.
- PT/OT when stable
Type 2 diabetes mellitus
Insulin Dependent
Patient reports good control. Has CGM, reports A1c 6.8
- Continue Jardiance/Farxiga
- Per patient's request, on 05/13/25, I changed his diet to regular diet
- Lantus 10 units daily
- Repaglinide 1 mg at all 3 meals
- ISS, follow accuchecks and adjust regimen as needed
- Diabetes [employer] consult after discussion with patient on 05/13/25. Appreciate Diabetes [employer].
Right Arm Firm and Swollen
- Could be infiltrate from IV line or a venous thrombus
- RUE ultrasound with moderate diffuse subcutaneous edema (as per radiologist's report)
Essential Hypertension
- Continue Lisinopril-HCTZ
Hypercholesterolemia
- Continue Rosuvastatin
Obesity
- Affects all aspect of care. Pt will benefit from weight loss measures
DVT Prophylaxis: Lovenox
Code Status: Full Code
Anticipated Discharge: > 48 hours
Subjective/Interval History
-
Date of Service: May 15, 2025
Patient was seen and examined. He denied any new symptoms or complaints.
Objective Data
-
Labs:
Laboratory Results
05/15/25
07:51
WBC 8.2
Hgb 12.3 L
Hct 38.7 L
Plt Count 506 H
Sodium 141
Potassium 4.0
Chloride 105
Carbon Dioxide 27
BUN 10
Creatinine 0.7
Glucose 132 H
Calcium 9.5
Vital Signs:
Vital Signs
Temp Pulse Resp BP Pulse Ox
98.6 F 72 14 120/72 97
05/15/25 15:35 05/15/25 15:35 05/15/25 15:35 05/15/25 15:35 05/15/25 15:35
I&O
05/14/25 05/15/25 05/16/25
06:59 06:59 06:59
Intake Total 1730 / 1730 1500 / 1500 1500 / 1500
Balance 1730 / 1730 1500 / 1500 1500 / 1500
[2025-05-15 21:03] LABS: Glucose - Point of Care 220 mg/dl (70-99)
--- NOTE | 2025-05-15 22:57 | W.PN.UPDATE ---
Update Note
Progress Note Update
Given that Dr. Soler's note reveals she plans to do surgery tomorrow, as part of pre-op medication management and to avoid perioperative complications, the following medication changes have been made:
-HCTZ, Repaglinide and Farxiga have been placed on hold
-Long-acting Insulin dose has been decreased by 20%
[2025-05-15 23:00] VITALS: BP 103/49
[2025-05-16] VITALS (8 sets, daily range): BP systolic 104–144; BP diastolic 54–87
[2025-05-16] MEDS: UNASYN IV ×4 (02:05→19:58)
[2025-05-16 05:56] LABS: Glucose - Point of Care 111 mg/dl (70-99)
--- NOTE | 2025-05-16 07:50 | PN.DE.MGMTRT ---
Insulin Management
- -
05/16/2025: Diabetes Management Follow up
Patient admitted 05/11 with left foot wound infection, diabetes management consult 05/14. PMH: HTN, HLD, T2DM, Obesity.
Pt has had chronic wounds of the left foot with increased redness, increasing size, purulent drainage and foul odor over past few days.
Prior to admission, was taking Tresiba 7 units in AM, Jardiance 25mg daily, Metformin 2000 mg XL in PM, Prandin 2mg BID (Breakfast/dinner) and Mounjaro Q Sundays.
A1C 6.5%, Cr 0.7, eGFR > 60%, Asked patient who he follows for diabetes care - Nomi Alvarez. Attempted to review diabetes meds, patients states: 'I told the other person all this yesterday, do I have to repeat it'? Pointedly asked patient about
the metformin, he states it is extended release and he takes it at dinner. He uses the [employer] 3 for glucose monitoring.
Patient is awake, alert and oriented, resting in bed, able to discuss diabetes care plan.
05/12 s/p I&D L foot with debridement to base and 3rd proximal phalanx amputation.
NPO for OR today--> TMA/gastroc recession. Received reduced dose of Lantus 8 units @[facility] in anticipation for OR, Fasting glucose 131 POC this AM.
Repaglinide was increase to 1mg TID yesterday. Glucose improved to range of 163 to 185.
Will resume Metformin 1000 mg today with dinner after procedure. Cont repaglinide 1 mg with meals, Farxiga 10mg daily and Lantus 10 units daily.
Discussed with nurse. Will cont to follow
Diabetes History
- -
Type of Diabetes: 2 requiring insulin
Pre-Admission Diabetes Regimen
05/15/25
07:51
Creatinine 0.7
Lab Results
Hemoglobin A1c 6.5 % (4.0-5.6) H 05/12/25 10:32
Insulin Pump Settings
IP Diabetes Regimen
05/15/25 05/15/25 05/15/25
07:51 12:01 17:08
Glucose 132 H
POC Glucose 185 H 163 H
05/15/25 05/16/25
21:02 05:55
Glucose
POC Glucose 220 H 111 H
Meal type: Dinner
Meal type: Lunch
Meal type: Breakfast
Amount consumed: 100%
Amount consumed: 100%
Amount consumed: 100%
Patient Education
[2025-05-16 08:01] LABS: Glucose - Point of Care 131 mg/dl (70-99)
[2025-05-16] MEDS: LANTUS 0.08 UNITS SC (08:29)
[2025-05-16] MEDS: CRESTOR PO (08:29)
[2025-05-16] MEDS: ZESTRIL PO (08:33)
[2025-05-16 08:41] LABS: Hematocrit 38.2 % (39.0-52.0); Hemoglobin 12.5 g/dL (13.0-18.0); Mean Corp Hgb Conc. 32.7 g/dL (33.0-37.0); Mean Corpuscular Volume 87.6 fL (80.0-94.0); Platelet Count 488 10^3/uL (130-400); Red Cell Dist. Width 12.5 % (11.5-14.5)
[2025-05-16 09:37] LABS: Blood Urea Nitrogen 14 mg/dl (9-20); Calcium 9.4 mg/dl (8.4-10.2); Carbon Dioxide 27 mmol/L (22-30); Chloride 108 mmol/L (98-107); Estimated Creatinine Clearance > 125 ml/min; Glucose 130 mg/dl (70-99); Potassium 4.3 mmol/L (3.5-5.1); Sodium 141 mmol/L (135-145); eGFR > 60.00
--- NOTE | 2025-05-16 10:21 | W.PN.ID1 ---
Date of Service
Date of Service: May 16, 2025
Today's Communication
Continue Unasyn.
Assessment / Plan
# Left foot acute osteomyelitis
# LLE cellulitis
# Leukocytosis - resolved
# DM with neuropathy
-/ s/p I+D, 3rd prox phalanx base amputation
- OR cx: E. coli, Enterococcus
- MRI + osteo 2nd, 3rd metatarsal, possible 4th met
- To OR to date TMA/gastroc recession
- Continue Unasyn 3g IV q6h.
- Anticipate at time of discharge, transition to Augmentin 875mg po Bid x 2 weeks.
When bone path eventually result available and if path shows osteo at margin, can arrange for IV abx outpatient.
# Conditions [employer] DEED[employer]
Diabetes mellitus
Neuropathy
Hypertension
Dyslipidemia
Right total knee replacement
Left total knee replacement
Left 2nd, 3rd, 4th Toe amputations
Right 2nd toe amputation
Chief Complaint
-: Other (Foot osteo)
Subjective / Review of Systems
To OR today.
Vital Signs / Physical Exam
Vital Signs
Vital Signs
Temp Pulse Resp BP Pulse Ox
98.0 F 71 20 104/54 100
05/16/25 07:17 05/16/25 07:17 05/16/25 07:17 05/16/25 07:17 05/16/25 07:17
Physical Exam
Constitutional: No Acute Distress and Comfortable
Cardiovascular: Regular Rate and S1/S2
Pulmonary: Clear
Gastrointestinal: Soft, Non Tender and Non Distended
Extremities: Edema (LLE edema decreasing) and Erythema (LLE erythema resolved)
Wound: Other (left foot dressing dry)
Neurological: AO x 3
Objective Data
Lab Data
Lab Results
05/16/25 08:22
05/16/25 08:22
ESR 61 mm/hour (0-20) H 05/11/25 13:35
Estimated Creat Clear > 125 ml/min 05/16/25 08:22
Total Bilirubin 1.1 mg/dl (0.2-1.3) 05/11/25 13:35
AST 31 U/L (17-59) 05/11/25 13:35
ALT 35 U/L (0-50) 05/11/25 13:35
Alkaline Phosphatase 150 U/L (38-126) H 05/11/25 13:35
C-Reactive Protein 188.70 mg/L (0.0-10.00) H 05/11/25 13:35
Most recent labs reviewed.
Micro Results:
05/12/25 11:50 Anaerobic Culture - Preliminary
Foot - Left Culture pending. Anaerobic cultures are examined after 3
days incubation. Additional information to follow.
05/11/25 13:38 Blood Culture - Preliminary
Blood/Venous No Growth in 4 days- Final report to follow
05/11/25 13:35 Blood Culture - Preliminary
Blood/Venous No Growth in 4 days- Final report to follow
05/12/25 11:50 Wound Culture - Preliminary
Foot - Left Escherichia coli
Enterococcus faecalis
Gram Stain - Preliminary
05/12/25 11:50 Tissue Culture - Final
Foot - Left Escherichia coli
Enterococcus faecalis
Gram Stain - Final
05/11/25 17:33 MRSA Screen - Final
Nose No Methicillin Resistant Staphylococcus aureus isolated.
05/14/25 MRI LLE: Acute osteomyelitis of the second and third metatarsals adjacent to the large plantar forefoot soft tissue ulceration. Mild bone marrow edema in the head of the fourth metatarsal without overt T1 hypointense marrow replacement.
Considerations include reactive edema versus the early changes of acute osteomyelitis. Bone marrow edema of the fifth toe involving the proximal, middle, and distal phalanges. Nonspecific but posttraumatic bone marrow edema is a consideration.
Osteomyelitis is probably less likely as this does not appear to be in close proximity to a soft tissue wound, but clinical correlation is recommended.
05/11/25 Foot XRAY: Abnormal osteolytic process along second and third metatarsal heads which is suspicious for acute osteomyelitis. Probable old healed erosion of the fourth metatarsal head.
[2025-05-16 11:30] LABS: Glucose - Point of Care 133 mg/dl (70-99)
--- NOTE | 2025-05-16 12:23 | CM ---
Chart reviewed. Care ongoing
Cont IV abx, will transition to po at d/c
No CM needs at this time
Plan: Home, no needs
[2025-05-16] MEDS: NOVOLOG FLEXPEN-LOW RESISTANCE SC ×2 (12:31→17:03)
--- NOTE | 2025-05-16 14:05 | W.PN.POD ---
Today's Communication
Today's Communication
S/P Left foot I&D
Assessment / Plan
-
Assessment:
Left foot Diabetic foot infection with acute osteomyelitis S/P I&D with 3rd proximal phalanx amputation -
LLE cellulitis
DM with neuropathy
Plan: TMA/gastroc recession today, npo after midnight. Surgical consent was reviewed and discussed. risks, benefits and complications discussed. All questions addressed to the best of my ability. Explained that proximal margin will be taken and
if any residual bone infection remains, he may require 6 weeks of IV antibiotic therapy. I also stressed the importance of compliance and non-weightbearing post operatively to ensure the best outcome. He was warned of the risks of non-compliance.
Subjective
Chief Complaint
S/P Left foot I&D
Subjective
Patient awake at bedside
Objective
Temp Pulse Resp BP Pulse Ox
98.0 F 71 20 104/54 100
05/16/25 07:17 05/16/25 07:17 05/16/25 07:17 05/16/25 07:17 05/16/25 07:17
05/16/25 08:22
05/16/25 08:22
Vital Signs and Lab results were reviewed.
Physical Exam
Physical Exam
Left foot bandages in place with no strikethrough, wound is unchanged
[2025-05-16 16:31] LABS: Glucose - Point of Care 123 mg/dl (70-99)
--- NOTE | 2025-05-16 16:31 | W.PN.HOSP.TC ---
Today's Communication/Plan
-
Surgery today
Perioperative medication adjustments made
Assessment / Plan
Assessment / Plan
Physical Exam
General: Not in acute distress
HEENT: Normocephalic
Respiratory: Clear to Auscultation Bilaterally
Cardiac: S1/S2, Regular Rhythm and Murmur (faint systolic murmur)
GI: Soft, Non Tender, Non Distended, Normal Bowel Sounds and Other (obese abdomen)
Musculoskeletal: No Cyanosis
Skin: Other (left foot is warm, posterior tibial pulse nonpalpable, mild ankle swelling, foot wound dressing intact)
Neuro: Awake, Alert and Oriented
Psych: Calm
Assessment/Plan
69-year-old male with history of insulin-dependent diabetes mellitus with prior toe amputations bilaterally, hyperlipidemia, hypertension, morbid obesity, osteoarthritis of right knee, who presents with infection of chronic left foot wound. Chronic
wound was present over the past few months but over the past several days (prior to admission) he noticed redness, dark-colored discoloration of the wound, and foul odor. There was no discharge or pain. He was seen by his merry go round attendant, Dr. Soler,
on 05/11/25, who sent him to the ED to be admitted with arrangements for surgical intervention. He does have diabetic neuropathy with numbness in bilateral feet, but reported no acute changes in his chronic neuropathic symptoms. He states his
blood glucose are generally well-controlled and reports A1c of 6.8. He reported subjective fever. Denied chest pain, palpitations, shortness of breath, nausea vomiting, abdominal pain, diarrhea/constipation, urinary symptoms.
Diabetic foot infection
Osteomyelitis
Elevated WBC with left shift, elevated CRP/ESR, chills. Exposed bone.
DONALD/TBI in 08/2022 wnl
- S/P I&D of left foot with bone biopsy on 05/12/25 -- likely will need TMA
- Foot xray with OM
- MRI was + osteo 2nd, 3rd metatarsal, possible 4th met
- 05/12 s/p I+D, 3rd prox phalanx base amputation -- OR cx: E. coli, Enterococcus
- Vancomycin and Zosyn recently stopped. Continue Unasyn 3g IV q6h.
- DONALD/PVR ordered to assess healing potential. LT toe brachial index reduced. B/L DONALD's elevated.
- Infectious disease consult
- Podiatry consult
- Activity: heel weightbearing in an Ortho[employer]edge shoe.
- PT/OT when stable
Type 2 diabetes mellitus
Insulin Dependent
Patient reports good control. Has CGM, reports A1c 6.8
- Farxiga and Repaglinide have been placed on hold given surgery today
- Per patient's request, on 05/13/25, I changed his diet to regular diet
- Lantus 10 units daily reduced to 8 units daily given that patient is going for surgery today
- ISS, follow accuchecks and adjust regimen as needed
- Diabetes WEBSITE OPTIMIZATION STRATEGIST consult after discussion with patient on 05/13/25. Appreciate Diabetes WEBSITE OPTIMIZATION STRATEGIST.
Right Arm Firm and Swollen
- Could be infiltrate from IV line or a venous thrombus
- RUE ultrasound with moderate diffuse subcutaneous edema (as per radiologist's report)
Essential Hypertension
- Continue Lisinopril
- HCTZ is on hold given surgery today
Hypercholesterolemia
- Continue Rosuvastatin
Obesity
- Affects all aspect of care. Pt will benefit from weight loss measures
DVT Prophylaxis: Lovenox
Code Status: Full Code
Anticipated Discharge: > 48 hours
Subjective/Interval History
-
Date of Service: May 16, 2025
Patient was seen and examined. He denied any complaints.
Objective Data
-
Labs:
Laboratory Results
05/16/25
08:22
WBC 9.3
Hgb 12.5 L
Hct 38.2 L
Plt Count 488 H
Sodium 141
Potassium 4.3
Chloride 108 H
Carbon Dioxide 27
BUN 14
Creatinine 0.7
Glucose 130 H
Calcium 9.4
Vital Signs:
Vital Signs
Temp Pulse Resp BP Pulse Ox
98.0 F 82 22 117/68 100
05/16/25 07:17 05/16/25 16:30 05/16/25 16:30 05/16/25 16:25 05/16/25 07:17
I&O
05/15/25 05/16/25 05/17/25
06:59 06:59 06:59
Intake Total 1500 / 1500 1500 / 1500
Balance 1500 / 1500 1500 / 1500
--- NOTE | 2025-05-16 16:34 | W.PN.POD ---
Today's Communication
Today's Communication
note created in error
Assessment / Plan
-
Assessment:
Left foot Diabetic foot infection with acute osteomyelitis S/P I&D with 3rd proximal phalanx amputation -
LLE cellulitis
DM with neuropathy
Plan: TMA/gastroc recession today, npo after midnight. Surgical consent was reviewed and discussed. risks, benefits and complications discussed. All questions addressed to the best of my ability. Explained that proximal margin will be taken and
if any residual bone infection remains, he may require 6 weeks of IV antibiotic therapy. I also stressed the importance of compliance and non-weightbearing post operatively to ensure the best outcome. He was warned of the risks of non-compliance.
Subjective
Objective
Temp Pulse Resp BP Pulse Ox
98.0 F 82 22 117/68 100
05/16/25 07:17 05/16/25 16:30 05/16/25 16:30 05/16/25 16:25 05/16/25 07:17
05/16/25 08:22
05/16/25 08:22
Vital Signs and Lab results were reviewed.
--- NOTE | 2025-05-16 16:35 | W.PN.UPDATE ---
Update Note
Progress Note Update
S/P Left foot Transmetatarsal amputation with gastrocnemius recession. See operative note Bone culture pending, proximal margin pending. Continue antibiotics. Non weight bearing to the Left LE. PT consult. Plan for dressing change on wednesday.
[2025-05-16] MEDS: LOVENOX 40 MG SC (17:21)
[2025-05-16 23:58] LABS: Glucose - Point of Care 252 mg/dl (70-99)
[2025-05-17] MEDS: UNASYN IV ×4 (01:54→19:33)
[2025-05-17 03:00] VITALS: BP 111/54
[2025-05-17 07:35] VITALS: BP 123/69
--- NOTE | 2025-05-17 07:40 | W.PN.HOSP.TC ---
Today's Communication/Plan
-
See plan -- discussed with podiatry who requested to keep patient here until tomorrow
Resumed DM medications -- patient is eating and drinking very well post-op
Assessment / Plan
Assessment / Plan
Physical Exam
General: Not in acute distress
HEENT: Normocephalic
Respiratory: Clear to Auscultation Bilaterally
Cardiac: S1/S2, Regular Rhythm and Murmur (faint systolic murmur)
GI: Soft, Non Tender, Non Distended, Normal Bowel Sounds and Other (obese abdomen)
Musculoskeletal: No Cyanosis
Skin: Other (left foot is warm, posterior tibial pulse nonpalpable, mild ankle swelling, foot wound dressing intact)
Neuro: Awake, Alert and Oriented
Psych: Calm
Assessment/Plan
69-year-old male with history of insulin-dependent diabetes mellitus with prior toe amputations bilaterally, hyperlipidemia, hypertension, morbid obesity, osteoarthritis of right knee, who presents with infection of chronic left foot wound. Chronic
wound was present over the past few months but over the past several days (prior to admission) he noticed redness, dark-colored discoloration of the wound, and foul odor. There was no discharge or pain. He was seen by his back tender pulp drier, Dr. Soler,
on 05/11/25, who sent him to the ED to be admitted with arrangements for surgical intervention. He does have diabetic neuropathy with numbness in bilateral feet, but reported no acute changes in his chronic neuropathic symptoms. He states his
blood glucose are generally well-controlled and reports A1c of 6.8. He reported subjective fever. Denied chest pain, palpitations, shortness of breath, nausea vomiting, abdominal pain, diarrhea/constipation, urinary symptoms.
Diabetic foot infection
Osteomyelitis status post left foot transmetatarsal amputation with gastrocnemius recession on 05/16/25
Elevated WBC with left shift, elevated CRP/ESR, chills. Exposed bone.
DONALD/TBI in 08/2022 wnl
- S/P I&D of left foot with bone biopsy on 05/12/25 -- likely will need TMA
- Foot xray with OM
- MRI was + osteo 2nd, 3rd metatarsal, possible 4th met
- 05/12 s/p I+D, 3rd prox phalanx base amputation -- OR cx: E. coli, Enterococcus
- Vancomycin and Zosyn recently stopped. Continue Unasyn 3g IV q6h.
- DONALD/PVR ordered to assess healing potential. LT toe brachial index reduced. B/L DONALD's elevated.
- Infectious disease consult
- Podiatry consult: per Dr. Soler -- keep patient in hospital for wound reassessment dressing change on 05/18/25
- Activity: needs to remain non-weight bearing on the left LLE in a splint
- PT/OT when stable
- Per my [place] [employer] communication with back tender pulp drier Dr. Soler, DVT prophylaxis with Eliquis 2.5 mg BID at the time of discharge
Type 2 diabetes mellitus
Insulin Dependent
Patient reports good control. Has CGM, reports A1c 6.8
- Farxiga and Repaglinide have been placed on hold given surgery today
- Per patient's request, on 05/13/25, I changed his diet to regular diet
- Lantus 10 units daily reduced to 8 units daily given that patient is going for surgery today
- ISS, follow accuchecks and adjust regimen as needed
- Diabetes DEBT COUNSELOR consult after discussion with patient on 05/13/25. Appreciate Diabetes DEBT COUNSELOR.
resuming Farxiga, Repaglinide and Metformin -- per endocrine, can resume immediately upon eating
Right Arm Firm and Swollen
- Could be infiltrate from IV line or a venous thrombus
- RUE ultrasound with moderate diffuse subcutaneous edema (as per radiologist's report)
Essential Hypertension
- Continue Lisinopril
- HCTZ is on hold given surgery today
Hypercholesterolemia
- Continue Rosuvastatin
Obesity
- Affects all aspect of care. Pt will benefit from weight loss measures
DVT Prophylaxis: Lovenox -- At the time of discharge, will do Eliquis 2.5 mg BID for DVT Prophylaxis, but for now, continue Lovenox subq for DVT Prophylaxis
Code Status: Full Code
Anticipated Discharge: Within 24 hours
Subjective/Interval History
-
Date of Service: May 17, 2025
Patient was seen and examined. He denied any symptoms or complaints.
Objective Data
-
Labs:
Laboratory Results
05/17/25
07:28
WBC Pending
Hgb Pending
Hct Pending
Plt Count Pending
Sodium Pending
Potassium Pending
Chloride Pending
Carbon Dioxide Pending
BUN Pending
Creatinine Pending
Glucose Pending
Calcium Pending
Vital Signs:
Vital Signs
Temp Pulse Resp BP Pulse Ox
97.9 F 73 18 111/54 93
05/17/25 03:00 05/17/25 03:00 05/17/25 03:00 05/17/25 03:00 05/17/25 03:00
I&O
05/16/25 05/17/25 05/18/25
06:59 06:59 06:59
Intake Total 1500 / 1500 590 / 590
Output Total 2930 / 2930
Balance 1500 / 1500 -2340 / -2340
[2025-05-17 07:55] LABS: Hematocrit 34.3 % (39.0-52.0); Hemoglobin 11.1 g/dL (13.0-18.0); Mean Corp Hgb Conc. 32.4 g/dL (33.0-37.0); Mean Corpuscular Volume 88.2 fL (80.0-94.0); Platelet Count 491 10^3/uL (130-400); Red Cell Dist. Width 12.2 % (11.5-14.5)
--- NOTE | 2025-05-17 07:58 | PN.DE.MGMTRT ---
Insulin Management
- -
05/17/2025: Diabetes Management Follow up
Patient admitted 05/11 with left foot wound infection, diabetes management consult 05/14. PMH: HTN, HLD, T2DM, Obesity.
Pt has had chronic wounds of the left foot with increased redness, increasing size, purulent drainage and foul odor over past few days.
Prior to admission, was taking Tresiba 7 units in AM, Jardiance 25mg daily, Metformin 2000 mg XL in PM, Prandin 2mg BID (Breakfast/dinner) and Mounjaro Q Sundays.
A1C 6.5%, Cr 0.7, eGFR > 60%, Asked patient who he follows for diabetes care - Nomi Alvarez. Attempted to review diabetes meds, patients states: 'I told the other person all this yesterday, do I have to repeat it'? Pointedly asked patient about
the metformin, he states it is extended release and he takes it at dinner. He uses the [employer] 3 for glucose monitoring.
Patient is awake, alert and oriented, resting in bed, able to discuss diabetes care plan.
05/12 s/p I&D L foot with debridement to base and 3rd proximal phalanx amputation.
05/16 OR - TMA/gastroc recession. Glucose @ HS 252.
05/17 Fasting glucose today 224. Repaglinide and farxiga resumed today, Lantus increased to 10 units today.
Will resume Metformin extended release 2000 mg today at dinner.
Discussed with patient his glucose has trended up he states: 'That's cause they test my glucose after I eat. I am NOT waiting on them to test me, I eat'.
Discussed with nurse. Will cont to follow
Diabetes History
- -
Type of Diabetes: 2 requiring insulin
Pre-Admission Diabetes Regimen
05/16/25
08:22
Creatinine 0.7
Lab Results
Hemoglobin A1c 6.5 % (4.0-5.6) H 05/12/25 10:32
Insulin Pump Settings
IP Diabetes Regimen
05/16/25 05/16/25 05/16/25
08:00 08:22 11:29
Glucose 130 H
POC Glucose 131 H 133 H
05/16/25 05/16/25
16:29 23:57
Glucose
POC Glucose 123 H 252 H
Meal type: Dinner
Amount consumed: 100%
Patient Education
[2025-05-17 08:02] LABS: Glucose - Point of Care 224 mg/dl (70-99)
[2025-05-17 08:23] LABS: Blood Urea Nitrogen 18 mg/dl (9-20); Calcium 9.2 mg/dl (8.4-10.2); Carbon Dioxide 28 mmol/L (22-30); Chloride 105 mmol/L (98-107); Estimated Creatinine Clearance > 125 ml/min; Glucose 202 mg/dl (70-99); Potassium 4.0 mmol/L (3.5-5.1); Sodium 140 mmol/L (135-145); eGFR > 60.00
[2025-05-17] MEDS: LANTUS SC (09:04)
[2025-05-17] MEDS: ZESTRIL 20 MG PO (09:12)
[2025-05-17] MEDS: CRESTOR 10 MG PO (09:13)
[2025-05-17] MEDS: NOVOLOG FLEXPEN-LOW RESISTANCE 2 UNITS SC (09:13)
[2025-05-17] MEDS: LANTUS 0.1 UNITS SC (09:21)
--- NOTE | 2025-05-17 10:45 | W.PN.ID1 ---
Date of Service
Date of Service: May 17, 2025
Today's Communication
-Suspect surgical cure
- At time of discharge (when OK with podiatry., transition Unasyn to Augmentin 875mg po Bid x 2 weeks.
I will follow the pending bone path result outpatient. If path shows osteo at margin, I will arrange for IV abx outpatient.
Assessment / Plan
# Left foot acute osteomyelitis
# LLE cellulitis
# Leukocytosis - resolved
# DM with neuropathy
-05/12 s/p I+D, 3rd prox phalanx base amputation
- OR cx: E. coli, Enterococcus
- MRI + osteo 2nd, 3rd metatarsal, possible 4th met
- 05/16/25 s/p TMA/gastroc recession
-Suspect surgical cure
- At time of discharge (when OK with podiatry., transition Unasyn to Augmentin 875mg po Bid x 2 weeks.
I will follow the pending bone path result outpatient. If path shows osteo at margin, I will arrange for IV abx outpatient.
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
Diabetes mellitus
Neuropathy
Hypertension
Dyslipidemia
Right total knee replacement
Left total knee replacement
Left 2nd, 3rd, 4th Toe amputations
Right 2nd toe amputation
Chief Complaint
-: Other (Foot osteo)
Subjective / Review of Systems
No pain.
Vital Signs / Physical Exam
Vital Signs
Vital Signs
Temp Pulse Resp BP Pulse Ox
97.6 F 76 20 123/69 98
05/17/25 07:35 05/17/25 07:35 05/17/25 07:35 05/17/25 07:35 05/17/25 07:35
Physical Exam
Constitutional: No Acute Distress and Comfortable
Cardiovascular: Regular Rate and S1/S2
Pulmonary: Clear
Gastrointestinal: Soft, Non Tender and Non Distended
Extremities: Edema (LLE edema decreasing) and Erythema (LLE erythema resolved)
Wound: Other (left foot dressing dry)
Neurological: AO x 3
Objective Data
Lab Data
Lab Results
05/17/25 07:28
05/17/25 07:28
ESR 61 mm/hour (0-20) H 05/11/25 13:35
Estimated Creat Clear > 125 ml/min 05/17/25 07:28
Total Bilirubin 1.1 mg/dl (0.2-1.3) 05/11/25 13:35
AST 31 U/L (17-59) 05/11/25 13:35
ALT 35 U/L (0-50) 05/11/25 13:35
Alkaline Phosphatase 150 U/L (38-126) H 05/11/25 13:35
C-Reactive Protein 188.70 mg/L (0.0-10.00) H 05/11/25 13:35
Most recent labs reviewed.
Micro Results:
05/12/25 11:50 Anaerobic Culture - Preliminary
Foot - Left Culture pending. Anaerobic cultures are examined after 3
days incubation. Additional information to follow.
05/16/25 15:45 Tissue Culture - Pending
Foot - Left Gram Stain - Preliminary
05/11/25 13:38 Blood Culture - Final
Blood/Venous No Growth - Final Report
05/11/25 13:35 Blood Culture - Final
Blood/Venous No Growth - Final Report
05/12/25 11:50 Wound Culture - Preliminary
Foot - Left Escherichia coli
Enterococcus faecalis
Gram Stain - Preliminary
05/12/25 11:50 Tissue Culture - Final
Foot - Left Escherichia coli
Enterococcus faecalis
Gram Stain - Final
05/11/25 17:33 MRSA Screen - Final
Nose No Methicillin Resistant Staphylococcus aureus isolated.
05/14/25 MRI LLE: Acute osteomyelitis of the second and third metatarsals adjacent to the large plantar forefoot soft tissue ulceration. Mild bone marrow edema in the head of the fourth metatarsal without overt T1 hypointense marrow replacement.
Considerations include reactive edema versus the early changes of acute osteomyelitis. Bone marrow edema of the fifth toe involving the proximal, middle, and distal phalanges. Nonspecific but posttraumatic bone marrow edema is a consideration.
Osteomyelitis is probably less likely as this does not appear to be in close proximity to a soft tissue wound, but clinical correlation is recommended.
05/11/25 Foot XRAY: Abnormal osteolytic process along second and third metatarsal heads which is suspicious for acute osteomyelitis. Probable old healed erosion of the fourth metatarsal head.
[2025-05-17 11:06] VITALS: BP 126/68
[2025-05-17 11:33] LABS: Glucose - Point of Care 169 mg/dl (70-99)
[2025-05-17] MEDS: NOVOLOG FLEXPEN-LOW RESISTANCE 1 UNITS SC (12:36)
[2025-05-17 15:28] VITALS: BP 128/69
--- NOTE | 2025-05-17 15:47 | CM ---
CM reviewed chart, patient seen bedside, discussed therapy recommendations of home health. Patient agreeable to referral to [facility], TT to liaison with referral. Patient reports his sister will transport him home tomorrow, his is out of town until
Wednesday evening. CM will continue to follow for all discharge planing needs.
Plan; discharge tomorrow, referral to [facility]
[2025-05-17 16:14] LABS: Glucose - Point of Care 250 mg/dl (70-99)
[2025-05-17] MEDS: GLUCOPHAGE XR EXTENDED RELEASE 2000 MG PO (16:15)
[2025-05-17] MEDS: NOVOLOG FLEXPEN-LOW RESISTANCE 3 UNITS SC (16:16)
[2025-05-17] MEDS: PRANDIN 1 MG PO (16:16)
[2025-05-17] MEDS: LOVENOX 40 MG SC (16:16)
--- NOTE | 2025-05-17 16:16 | VNURNOTE ---
Home Health Liaison met with patient at bedside to discuss [facility] nurse/therapy, visits, schedule and homebound status. Patient is agreeable and understands that visits at home will be 2-3 x per week to assess and teach medical management. Patient
stated that his spouse would be able to learn wound care. Patient is aware that [facility] will contact them for start of care in 1-2 days after discharge from . Per ID note, cx's pending and should be resulted next week- potential for IV
antibiotics. Explained to patient that [facility] nurses do not provide IV antibx services. Patient verbalized understanding.
[facility] referral completed in [facility].
[2025-05-17 21:34] LABS: Glucose - Point of Care 138 mg/dl (70-99)
[2025-05-17 23:00] VITALS: BP 120/71
[2025-05-18] MEDS: UNASYN IV ×3 (02:40→14:21)
[2025-05-18 07:19] VITALS: BP 120/77
--- NOTE | 2025-05-18 07:56 | PN.DE.MGMTRT ---
Insulin Management
- -
05/18/2025: Diabetes Management Follow up
Patient admitted 05/11 with left foot wound infection, diabetes management consult 05/14. PMH: HTN, HLD, T2DM, Obesity.
Pt has had chronic wounds of the left foot with increased redness, increasing size, purulent drainage and foul odor over past few days.
Prior to admission, was taking Tresiba 7 units in AM, Jardiance 25mg daily, Metformin 2000 mg XL in PM, Prandin 2mg BID (Breakfast/dinner) and Mounjaro Q Sundays.
A1C 6.5%, Cr 0.7, eGFR > 60%, Asked patient who he follows for diabetes care - Nomi Alvarez. Attempted to review diabetes meds, patients states: 'I told the other person all this yesterday, do I have to repeat it'? Pointedly asked patient about
the metformin, he states it is extended release and he takes it at dinner. He uses the [employer] 3 for glucose monitoring.
Patient is awake, alert and oriented, resting in bed, able to discuss diabetes care plan.
05/12 s/p I&D L foot with debridement to base and 3rd proximal phalanx amputation.
POD # 3 S/P Left foot transmetatarsal amputation with gastrocnemius recession -05/16 OR
Glucose @ HS 138, Fasting glucose 155 today. Premeal yesterday 169 to 250
Will make no changes to current regimen:Repaglinide 1mg TID, Lantus 10 units, Farxiga 10mg and Metformin 2000 mg XL in PM.
Discussed with patient his glucose has trended up he states: 'That's cause they test my glucose after I eat. I am NOT waiting on them to test me, I eat'.
Discussed with nurse. Will cont to follow.
Meds at discharge: Tresiba 7 units in AM, Jardiance 25mg daily, Metformin 2000 mg XL in PM, Prandin 2mg BID (Breakfast/dinner) and Mounjaro Q Sundays.
Diabetes History
- -
Type of Diabetes: 2 requiring insulin
Pre-Admission Diabetes Regimen
05/17/25
07:28
Creatinine 0.7
Lab Results
Hemoglobin A1c 6.5 % (4.0-5.6) H 05/12/25 10:32
Insulin Pump Settings
IP Diabetes Regimen
05/17/25 05/17/25 05/17/25
07:28 08:01 11:32
Glucose 202 H
POC Glucose 224 H 169 H
05/17/25 05/17/25
16:12 21:34
Glucose
POC Glucose 250 H 138 H
Meal type: Dinner
Meal type: Lunch
Amount consumed: 100%
Amount consumed: 100%
Patient Education
[2025-05-18 08:05] LABS: Glucose - Point of Care 155 mg/dl (70-99)
[2025-05-18] MEDS: LANTUS 0.1 UNITS SC (08:15)
[2025-05-18] MEDS: PRANDIN 1 MG PO ×2 (08:16→12:02)
[2025-05-18] MEDS: CRESTOR 10 MG PO (08:16)
[2025-05-18] MEDS: ZESTRIL 20 MG PO (08:16)
[2025-05-18] MEDS: FARXIGA 10 MG PO (08:16)
[2025-05-18] MEDS: NOVOLOG FLEXPEN-LOW RESISTANCE 1 UNITS SC (08:16)
--- NOTE | 2025-05-18 08:36 | W.PN.POD ---
Today's Communication
Today's Communication
S/P Left TMA and gastroc recession
Assessment / Plan
-
Assessment:
S/P Left foot transmetatarsal amputation with gastrocnemius recession - POD #2
DM with neuropathy
Plan: Dressings are changed today. He is to remain in the splint and keep dressings clean, dry and intact. Elevate extremity at rest. Explained that proximal margin results are pending to determine if any residual bone infection remains.
Rafa is okay with following these results outpatient and initiating 6 weeks of IV antibiotic therapy outpatient if needed. I also stressed the importance of compliance and non-weightbearing post operatively to ensure the best outcome. He was
warned of the risks of non-compliance. Recommend Eliquis 2.5 mg bid for DVT prophylaxis. follow up in my office in 1 week
Subjective
Chief Complaint
S/P Left Transmetatarsal Amputation with Gastroc Recession
Subjective
Patient seen at bedside - awake and offers no compalints of pain
Objective
Temp Pulse Resp BP Pulse Ox
98.6 F 71 20 120/77 96
05/18/25 07:19 05/18/25 07:19 05/18/25 07:19 05/18/25 07:19 05/18/25 07:19
Vital Signs and Lab results were reviewed.
Physical Exam
Physical Exam
Splint is in place with some strikethrough distally. Incisions with sutures intact. Flap is warm, viable and well perfused Gastroc incision is well approximated. No signs of infection. Calves supple non tender no pain with compression
[2025-05-18 09:15] LABS: Hematocrit 34.7 % (39.0-52.0); Hemoglobin 10.9 g/dL (13.0-18.0); Mean Corp Hgb Conc. 31.4 g/dL (33.0-37.0); Mean Corpuscular Volume 90.4 fL (80.0-94.0); Platelet Count 425 10^3/uL (130-400); Red Cell Dist. Width 12.6 % (11.5-14.5)
[2025-05-18 09:43] LABS: Blood Urea Nitrogen 17 mg/dl (9-20); Calcium 9.4 mg/dl (8.4-10.2); Carbon Dioxide 28 mmol/L (22-30); Chloride 109 mmol/L (98-107); Estimated Creatinine Clearance 123 ml/min; Glucose 173 mg/dl (70-99); Potassium 4.3 mmol/L (3.5-5.1); Sodium 142 mmol/L (135-145); eGFR > 60.00
--- NOTE | 2025-05-18 10:03 | W.PN.HOSP.TC ---
Today's Communication/Plan
-
Discharge today
Assessment / Plan
Assessment / Plan
Physical Exam
General: Not in acute distress
HEENT: Normocephalic
Respiratory: Clear to Auscultation Bilaterally
Cardiac: S1/S2, Regular Rhythm and Murmur (faint systolic murmur)
GI: Soft, Non Tender, Non Distended, Normal Bowel Sounds and Other (obese abdomen)
Musculoskeletal: No Cyanosis
Skin: Other (left foot is warm, posterior tibial pulse nonpalpable, mild ankle swelling, foot wound dressing intact)
Neuro: Awake, Alert and Oriented
Psych: Calm
Assessment/Plan
69-year-old male with history of insulin-dependent diabetes mellitus with prior toe amputations bilaterally, hyperlipidemia, hypertension, morbid obesity, osteoarthritis of right knee, who presents with infection of chronic left foot wound. Chronic
wound was present over the past few months but over the past several days (prior to admission) he noticed redness, dark-colored discoloration of the wound, and foul odor. There was no discharge or pain. He was seen by his airline security representative, Dr. Soler,
on 05/11/25, who sent him to the ED to be admitted with arrangements for surgical intervention. He does have diabetic neuropathy with numbness in bilateral feet, but reported no acute changes in his chronic neuropathic symptoms. He states his
blood glucose are generally well-controlled and reports A1c of 6.8. He reported subjective fever. Denied chest pain, palpitations, shortness of breath, nausea vomiting, abdominal pain, diarrhea/constipation, urinary symptoms.
Diabetic foot infection
Osteomyelitis status post left foot transmetatarsal amputation with gastrocnemius recession on 05/16/25
Elevated WBC with left shift, elevated CRP/ESR, chills. Exposed bone.
DONALD/TBI in 08/2022 wnl
- S/P I&D of left foot with bone biopsy on 05/12/25 -- likely will need TMA
- Foot xray with OM
- MRI was + osteo 2nd, 3rd metatarsal, possible 4th met
- 05/12 s/p I+D, 3rd prox phalanx base amputation -- OR cx: E. coli, Enterococcus
- Vancomycin and Zosyn recently stopped. Transition Unasyn 3g IV Q6h to Augmentin 875 mg PO Bid x 2 weeks
- Dr Craig will follow the pending bone pathology result outpatient. If pathology shows osteo at margin, she will arrange for IV antibiotics outpatient.
- DONALD/PVR ordered to assess healing potential. LT toe brachial index reduced. B/L DONALD's elevated.
- Infectious disease consult
- Podiatry consult: per Dr. Soler -- kept patient in hospital for wound reassessment dressing change on 05/18/25
- Activity: needs to remain non-weight bearing on the left lower extremity in a splint. Elevate extremity at rest.
- PT/OT when stable
- Per my [place] Text communication with airline security representative Dr. Soler (and her note), DVT prophylaxis with Eliquis 2.5 mg BID at the time of discharge
- Follow-up with Dr. Soler in 1 week
Type 2 diabetes mellitus
Insulin Dependent
Patient reports good control. Has CGM, reports A1c 6.8
- Per patient's request, on 05/13/25, I changed his diet to regular diet
- Continue current DM regimen -- previously, pre-op patient's oral DM meds were held, and Insulin was reduced
- Diabetes HEDDLER consult after discussion with patient on 05/13/25. Appreciate Diabetes HEDDLER.
- Meds at discharge: Tresiba 7 units in AM, Jardiance 25mg daily, Metformin 2000 mg XL in PM, Prandin 2mg BID (Breakfast/dinner) and Mounjaro Q Sundays
Right Arm Firm and Swollen
- Could be infiltrate from IV line or a venous thrombus
- RUE ultrasound with moderate diffuse subcutaneous edema (as per radiologist's report)
Essential Hypertension
- Continue Lisinopril
- HCTZ was placed on hold pre-op, given his blood pressures are around normal without HCTZ, discharge on low-sodium diet and only Lisinopril for now but hold HCTZ at discharge
Hypercholesterolemia
- Continue Rosuvastatin
Obesity
- Affects all aspect of care. Pt will benefit from weight loss measures
DVT Prophylaxis: Lovenox -- At the time of discharge, will do Eliquis 2.5 mg BID for DVT Prophylaxis, but for now, continue Lovenox subq for DVT Prophylaxis
Code Status: Full Code
More than 30 minutes spent in discharge including
Final examination of the patient
Summarizing hospital stay
Instructions for continuing care to all relevant caregivers
Preparation of discharge records, prescriptions, and referral forms
Total time spent (in minutes): 43
Anticipated Discharge: Today
Subjective/Interval History
-
Date of Service: May 18, 2025
Patient was seen and examined. He denied any fever, chest pain, shortness of breath or any other symptoms or complaints.
Objective Data
-
Labs:
Laboratory Results
05/18/25
09:02
WBC 9.3
Hgb 10.9 L
Hct 34.7 L
Plt Count 425 H
Sodium 142
Potassium 4.3
Chloride 109 H
Carbon Dioxide 28
BUN 17
Creatinine 0.8
Glucose 173 H
Calcium 9.4
Vital Signs:
Vital Signs
Temp Pulse Resp BP Pulse Ox
98.6 F 71 20 120/77 96
05/18/25 07:19 05/18/25 07:19 05/18/25 07:19 05/18/25 07:19 05/18/25 07:19
I&O
05/17/25 05/18/25 05/19/25
06:59 06:59 06:59
Intake Total 590 / 590 1500 / 1500
Output Total 2930 / 2930 1999 / 1999
Balance -2340 / -2340 -500 / -500
--- NOTE | 2025-05-18 11:14 | W.PN.ID1 ---
Date of Service
Date of Service: May 18, 2025
Today's Communication
- transition Unasyn to Augmentin 875mg po Bid x [address] Craig will follow the pending bone path result outpatient. If path shows osteo at margin, she will arrange for IV abx outpatient.
Assessment / Plan
# Left foot acute osteomyelitis
# LLE cellulitis
# Leukocytosis - resolved
# DM with neuropathy
-05/12 s/p I+D, 3rd prox phalanx base amputation
- OR cx: E. coli, Enterococcus
- MRI + osteo 2nd, 3rd metatarsal, possible 4th met
- 05/16/25 s/p TMA/gastroc recession
-Suspect surgical cure
- transition Unasyn to Augmentin 875mg po Bid x [address] Craig will follow the pending bone path result outpatient. If path shows osteo at margin, she will arrange for IV abx outpatient.
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
Diabetes mellitus
Neuropathy
Hypertension
Dyslipidemia
Right total knee replacement
Left total knee replacement
Left 2nd, 3rd, 4th Toe amputations
Right 2nd toe amputation
Chief Complaint
-: Other (Foot osteo)
Subjective / Review of Systems
afebrile
bp stable
Vital Signs / Physical Exam
Vital Signs
Vital Signs
Temp Pulse Resp BP Pulse Ox
98.6 F 71 20 120/77 96
05/18/25 07:19 05/18/25 07:19 05/18/25 07:19 05/18/25 07:19 05/18/25 07:19
Physical Exam
Constitutional: No Acute Distress
Cardiovascular: Regular Rate
Pulmonary: Symmetric
Gastrointestinal: Non Distended
Skin: Dry; Negative Rash or Jaundice
Neurological: Awake
Objective Data
Lab Data
Lab Results
05/18/25 09:02
05/18/25 09:02
ESR 61 mm/hour (0-20) H 05/11/25 13:35
Estimated Creat Clear 123 ml/min 05/18/25 09:02
Total Bilirubin 1.1 mg/dl (0.2-1.3) 05/11/25 13:35
AST 31 U/L (17-59) 05/11/25 13:35
ALT 35 U/L (0-50) 05/11/25 13:35
Alkaline Phosphatase 150 U/L (38-126) H 05/11/25 13:35
C-Reactive Protein 188.70 mg/L (0.0-10.00) H 05/11/25 13:35
Most recent labs reviewed.
Micro Results:
05/12/25 11:50 Wound Culture - Final
Foot - Left Escherichia coli
Enterococcus faecalis
Gram Stain - Final
05/12/25 11:50 Anaerobic Culture - Final
Foot - Left Bacteroides Caccae
Fusobacterium species
05/16/25 15:45 Tissue Culture - Preliminary
Foot - Left Gram Stain - Preliminary
05/11/25 13:38 Blood Culture - Final
Blood/Venous No Growth - Final Report
05/11/25 13:35 Blood Culture - Final
Blood/Venous No Growth - Final Report
05/12/25 11:50 Tissue Culture - Final
Foot - Left Escherichia coli
Enterococcus faecalis
Gram Stain - Final
05/11/25 17:33 MRSA Screen - Final
Nose No Methicillin Resistant Staphylococcus aureus isolated.
05/14/25 MRI LLE: Acute osteomyelitis of the second and third metatarsals adjacent to the large plantar forefoot soft tissue ulceration. Mild bone marrow edema in the head of the fourth metatarsal without overt T1 hypointense marrow replacement.
Considerations include reactive edema versus the early changes of acute osteomyelitis. Bone marrow edema of the fifth toe involving the proximal, middle, and distal phalanges. Nonspecific but posttraumatic bone marrow edema is a consideration.
Osteomyelitis is probably less likely as this does not appear to be in close proximity to a soft tissue wound, but clinical correlation is recommended.
05/11/25 Foot XRAY: Abnormal osteolytic process along second and third metatarsal heads which is suspicious for acute osteomyelitis. Probable old healed erosion of the fourth metatarsal head.
--- NOTE | 2025-05-18 11:38 | CM ---
Chart reviewed. Patient will d/c today
Per hospitalist, patient will d/c w/ Eliquis, script sent to pharmacy on file. Requesting CM to assess cost and affordability
CM called [facility], spoke w/ pharmacy staff. Patient rx insurance covers Eliquis, however, co pay would be $656
CM updated patient bedside about Eliquis cost. Patient stated he doesn't use [facility] and uses [facility] in [place]. Hospitalist joined CM bedside, updated about pharmacy, will send rx to [facility].
Patient was provided day Eliquis coupon. Patient asking if VN and PT can be scheduled for this weekend, CM stated [facility] will reach out once he's home to schedule SOC
Plan: Home w/ [facility]
[2025-05-18 11:57] LABS: Glucose - Point of Care 136 mg/dl (70-99)
[2025-05-18] MEDS: NOVOLOG FLEXPEN-LOW RESISTANCE SC ×2 (12:01→16:05)
[2025-05-18 15:00] VITALS: BP 146/76
--- NOTE | 2025-05-18 15:51 | W.DCSUMMARY ---
Discharge Summary
Discharge Data
Date of Admission: 05/11/25
Date of Discharge: 05/18/25
Total time spent discharging patient (in min): 43
-
Pending Results: Yes
Additional Pending Results:
Microbiology lab results
Biopsy Results
Hospital Course
69 y/o male with past medical history of hypertension, hyperlipidemia, diabetes, multiple prior toe amputations and obesity presented with left foot infection and subjective fever. He was sent in to the hospital by his degreaser Dr. Soler. It
was noted that patient has had chronic wounds on past few months of the left foot with increased redness, worsening size and purulent drainage and foul odor over the few days prior to presentation. Patient was started on Vancomycin and Zosyn, and
podiatry and infectious disease were consulted. Left foot x-ray showed osteomyelitis. On May 12, 2025, patient had incision and drainage of his left foot with
excisional debridement to the level of bone; the 3rd proximal phalanx base was amputated for 3rd proximal phalanx osteomyelitis. MRI imaging was ordered for transmetatarsal amputation planning purposes -- and the MRI was positive for osteomyelitis
in the 2nd, 3rd metatarsal, and possibly 4th met. Arterial Brachial Index study was also ordered. Based on cultures results, patient's Vancomycin was able to be stopped, and his Zosyn was continued. Diabetes Nurse Practitioner was consulted after
patient was concerned about his oral diabetes medications. Patient's cultures from the operating room 05/12/25 grew E. coli and Enterococcus. Patient's Zosyn was switched to Unasyn. Patient had, on 05/16/25, left foot transmetatarsal amputation with
gastrocnemius recession. Patient's hydrochlorothiazide and diabetes mellitus medications were held/reduced pre-operatively, but resumed post-operatively. Infectious Disease physician Dr. Craig would follow the pathology results from 05/16/15 surgery,
after patient discharged, to see whether patient would need to be placed on an intravenous antibiotic regimen outpatient (i.e. if pathology showed osteomyelitis at the margins). Patient was doing well, and stable for discharge on Augmentin 875 mg
BID for 2 weeks.
Discharge Plan
-
Patient Disposition: Home with Home Care
Discharge Diagnosis/Procedures: Diabetic foot infection
Osteomyelitis status post left foot transmetatarsal amputation with gastrocnemius recession on 05/16/25
Elevated WBC with left shift, elevated CRP/ESR on labwork, chills. Exposed bone.
Type 2 diabetes mellitus -- Insulin Dependent
Right Arm Firm and Swollen -- NO venous thrombosis -- IMPROVED
Hypertension
Hyperlipidemia
Obesity

Ultrasound Peripheral Arteries Lower Extremities with Ankle Brachial Index (as per radiologist's report):
'IMPRESSION:
1. Left ankle brachial index 1.36, compared to 1.12 on prior. Left toe brachial index 0.69 (normal greater than 0.7). Minimal arterial plaque without focal large vessel stenosis demonstrated. Spectral Doppler waveforms are suggestive of mild
infrapopliteal disease.
2. Right ankle-brachial index 1.46 (likely artificially elevated), compared to 1.39 on prior. Right toe brachial index measures 0.84. Minimal arterial plaque without focal significant stenosis demonstrated.'
Condition: Good
Diet: Low Fat, Low Cholesterol, Low Sodium, 2 Gram Sodium and Diabetic, Carb Controlled
Activity: Other activity
Additional Activity: Activity: Non-Weight Bearing on the left lower extremity in a splint. Elevate extremity at rest.
Blood Work: CBC and CMP with your primary care provider's office in 3 to 5 days
Activity Restrictions/Additional Instructions:
Activity: Non-Weight Bearing on the left lower extremity in a splint. Elevate extremity at rest.
Dr. Craig (Infectious Disease physician) will follow the pending bone pathology result outpatient. If pathology shows osteomyelitis at margin, she will arrange for intravenous antibiotics outpatient. Call her office if you have any questions.
Referrals:
Sallie Soler DPM [Active, Podiatry] - in one week
Referral Note: Hospitalization Follow-Up. Needs Follow-up within 1 week of hospital discharge (hospital discharge was on 05/18/25)
Fred Armando PA-C [Family Provider, Family Practice]
Lily Craig MD [Active, Infectious Diseases] - As needed
Additional Discharge Medication Instructions: Lisinopril-Hydrochlorothiazide combination medication has been stopped for now to avoid dropping your blood pressure too much, and replaced with Lisinopril 20 mg daily only (without the
hydrochlorothiazide) -- the Lisinopril (without the hydrochlorothiazide) medication has been sent to your pharmacy -- ask your primary care provider when you should start taking the Hydrochlorothiazide again.
Eliquis 2.5 mg BID is a new medication to help prevent venous blood clots from forming in your legs, especially your left leg -- ask Dr. Soler how long you need to be on the medication.
Amoxicillin-Clavulanate is a new antibiotic medication: you need to 875 mg P.O. Bid for 2 weeks (has been sent to your pharmacy)
Prescriptions:
New
Eliquis 2.5 mg tablet
2.5 mg PO BID Qty: 60 1RF
amoxicillin-pot clavulanate 875-125 mg tablet
1 tab PO BID 14 Days Qty: 28 0RF
lisinopril 20 mg Tablet
20 mg PO DAILY Qty: 30 0RF
Continued
rosuvastatin 10 MG tablet
10 mg PO DAILY
Jardiance 25 MG tablet
25 mg PO DAILY
therapeutic multivitamin Tablet
1 tab PO DAILY
metformin 500 mg Tablet Extended Release 24 Hr
2,000 mg PO QPM
repaglinide 1 mg Tablet
2 mg PO BID
insulin degludec [Tresiba FlexTouch U-100] 100 unit/mL (3 mL) Insulin Pen
7 unit SC DAILY
Mounjaro 10 mg/0.5 mL Pen Injector
10 mg SC VALERIO
Discontinued
lisinopril-hydrochlorothiazide 20-25 mg Tablet
1 tab PO DAILY
Discharge Orders:
Discharge Patient (As Directed); Ordered 05/18/25
Ordered By: Gavin Balderas
Discharge Date and Time
Discharge Date/Time: 05/18/25 17:00
Print Language: ETHIOPIAN
[2025-05-18] MEDS: GLUCOPHAGE XR EXTENDED RELEASE PO (16:06)
[2025-05-18] MEDS: PRANDIN PO (16:06)
[2025-05-18] MEDS: LOVENOX 40 MG SC (16:15)
== END 2025-05-18 17:00 | disposition home health service (06) | DRG 617 ==
LOC: 4 WEST ACU 15:26
PROVIDERS: Student in an Organized Health Care Education/Training Program; ADMITTING PHYSICIAN Hospitalist; ATTENDING PHYSICIAN Hospitalist; CONSULT PHYSICIAN Internal Medicine Infectious Disease; CONSULT PHYSICIAN Podiatrist; EMERGENCY PHYSICIAN Emergency Medicine; FAMILY PHYSICIAN Physician Assistant Medical
PROC: 0Y6U0Z1 Detachment at Left 3rd Toe, High, Open Approach (ICD-10-PCS; 2025-05-12)
PROC: 0QBP0ZX Excision of Left Metatarsal, Open Approach, Diagnostic (ICD-10-PCS; 2025-05-12)
PROC: 0Y6N0ZC Detachment at Left Foot, Partial 3rd Ray, Open Approach (ICD-10-PCS; 2025-05-16)
PROC: 0Y6N0ZF Detachment at Left Foot, Partial 5th Ray, Open Approach (ICD-10-PCS; 2025-05-16)
PROC: 0L8P0ZZ Division of Left Lower Leg Tendon, Open Approach (ICD-10-PCS; 2025-05-16)
PROC: 0Y6N0ZD Detachment at Left Foot, Partial 4th Ray, Open Approach (ICD-10-PCS; 2025-05-16)
PROC: 0Y6N0ZB Detachment at Left Foot, Partial 2nd Ray, Open Approach (ICD-10-PCS; 2025-05-16)
PROC: 0Y6N0Z9 Detachment at Left Foot, Partial 1st Ray, Open Approach (ICD-10-PCS; 2025-05-16)
DX: E11.69 Type 2 diabetes mellitus with other specified complication (principal); L03.116 Cellulitis of left lower limb; M86.172 Other acute osteomyelitis, left ankle and foot; I10 Essential (primary) hypertension; E78.00 Pure hypercholesterolemia, unspecified; E11.40 Type 2 diabetes mellitus with diabetic neuropathy, unspecified; E11.628 Type 2 diabetes mellitus with other skin complications; E66.01 Morbid (severe) obesity due to excess calories; M17.11 Unilateral primary osteoarthritis, right knee; B96.20 Unspecified Escherichia coli [E. coli] as the cause of diseases classified elsewhere; B95.2 Enterococcus as the cause of diseases classified elsewhere; Z96.653 Presence of artificial knee joint, bilateral; Z79.84 Long term (current) use of oral hypoglycemic drugs; Z79.82 Long term (current) use of aspirin; Z79.4 Long term (current) use of insulin; Z68.34 Body mass index [BMI] 34.0-34.9, adult; Z89.421 Acquired absence of other right toe(s); Z89.422 Acquired absence of other left toe(s)
CPT/HCPCS: 73630; 73721; 80048; 80053; 80202; 82962; 83036; 85025; 85027; 85652; 86140; 87040; 87070; 87071; 87075; 87076; 87077; 87147; 87176; 87185; 87186; 87205; 88304; 88307; 88311; 93922; 93925; 93971; 96365; 96375; 97163; 97167; 99285